=== PATIENT | male | born 1960 | race African-American/Black ===

== ENCOUNTER 2019-02-23 15:39 | Emergency (ER) | payer OTHER ==
[~2019-02-23] VITALS: Ht 172.7 cm; Wt 150.6 kg
[~2019-02-23 15:39] MED LIST: *INS REG3; ASPI-1169 PO; CARV6.25 PO; DOCU-270 PO; Hydralazine Hcl PO; LISI20TA; MELO-105; Nitroglycerin SL; OXYC10TA59; OXYC5CAP18; PANT40TA2 PO; SIMV20TA2 PO; TRAZ-252
--- NOTE | 2019-02-23 16:02 | NUR ---
BIB SELF 58 YEAR OLD FEMALE C/O FACIAL SWELLING SINCE THIS AM. CONCERN ABOUT THROAT DISCOMFORT DENIES SOB INSPECTOR BRAKE LINING. ALERT AND ORIENTED X4 BREATHING EVEN AND UNLABORED WITH NO DISTRESS NOTED. SKIN INTACT. AWAITING TO BE SEE BY
[2019-02-23] MEDS ORDERED: methylPREDNISolone SOD SUCC 125 MG/2ML VIAL ONE (16:17)
[2019-02-23] MEDS ORDERED: diphenhydrAMINE HCL 50 MG CAPSULE ONE (16:18)
[2019-02-23] MEDS ORDERED: FAMOTIDINE (20 MG) 20 MG TABLET ONE (16:18)
[2019-02-23] MEDS ORDERED: diphenhydrAMINE HCL 50 MG CAPSULE PO ONE (16:30)
[2019-02-23] MEDS ORDERED: FAMOTIDINE (20 MG) 20 MG TABLET PO ONE (16:30)
[2019-02-23] MEDS ORDERED: methylPREDNISolone SOD SUCC 125 MG/2ML VIAL IM ONE (16:30)
--- NOTE | 2019-02-23 16:48 | NUR ---
Patient discharged to home in stable condition. Written and verbal after care instructions given. Patient verbalizes understanding of instruction.
[2019-02-23 16:49] VITALS: BP 144/74
== END 2019-02-23 16:52 | disposition home or self-care (01) ==
LOC: ER 15:40
DX: T78.3XXA Angioneurotic edema, initial encounter (principal); T46.4X5A Adverse effect of angiotensin-converting-enzyme inhibitors, initial encounter; G89.29 Other chronic pain; M54.9 Dorsalgia, unspecified; G47.33 Obstructive sleep apnea (adult) (pediatric); J45.909 Unspecified asthma, uncomplicated; E11.9 Type 2 diabetes mellitus without complications; I10 Essential (primary) hypertension; Z87.891 Personal history of nicotine dependence; Z98.890 Other specified postprocedural states; Z79.82 Long term (current) use of aspirin; Z79.4 Long term (current) use of insulin; Y92.89 Other specified places as the place of occurrence of the external cause
CPT/HCPCS: 96372; 99283; J2930; Q0163

== ENCOUNTER 2020-04-25 19:02 | Inpatient (IN) | payer OTHER ==
[~2020-04-25] VITALS: Ht 172.7 cm; Wt 158.3 kg
--- NOTE | 2020-04-25 20:03 | NUR ---
BIBS FROM HOME TO ER BED 6. AAOX4. NOT IN RESP DISTRESS, BREATHING EVEN AND UNLABORED. TALKING IN FULL SENTENCES. AMBULATORY. CAME IN FOR SOB WHICH IS EXACERBATED BY ACTIVITY. PT STATES THAT HE GETS WINDED OFF EVEN IF HE ONLY WALKS FOR A SHORT DISTANCE. PT IS SATTING WELL NOTED @ 97% ON RA. WAS AT THE BEDSIDE FOR EVAL. ORDERS RECEIVED, NOTED AND CARRIED OUT. IV LINE ESTABLISHED ON L AC 18G. BLOOD DRAWN AND GIVEN TO COMPUTERIZED TABLE CUTTER AT BEDSIDE.
[2020-04-25 20:12] LABS: BASOPHILS # (AUTO) 0.1 /CMM (0.0-0.2); BASOPHILS % (AUTO) 0.8 % (0.0-2.0); EOSINOPHILS % (AUTO) 1.6 % (0.0-6.0); HEMATOCRIT 34 % (39-51); HEMOGLOBIN 10.8 g/dL (13.5-17.5); LYMPHOCYTES # (AUTO) 1.7 /CMM (0.8-4.8); LYMPHOCYTES % (AUTO) 18.1 % (20.0-44.0); MEAN CORPUSCULAR HGB CONC 32 g/dl (31.0-36.0); MEAN CORPUSCULAR VOLUME 91 fL (80-96); MONOCYTES # (AUTO) 0.7 /CMM (0.1-1.30); MONOCYTES % (AUTO) 7.6 % (2.0-12.0); NEUTROPHILS # (AUTO) 6.8 /CMM (1.8-8.9); NEUTROPHILS % (AUTO) 71.9 % (43.0-81.0); PLATELET COUNT (AUTO) 234 /CMM (150-450); RED BLOOD CELL COUNT(AUTO) 3.69 MIL/uL (4.5-6.0); WHITE BLOOD COUNT (AUTO) 9.4 K/uL (4.3-11.0)
[2020-04-25 20:18] LABS: CALCIUM, SERUM 8.6 mg/dL (8.5-10.1); CREATININE 2.3 mg/dL (0.6-1.3); POTASSIUM 4.3 mmol/L (3.5-5.1)
[2020-04-25 20:34] LABS: ALBUMIN 2.5 g/dL (3.4-5.0); TOTAL PROTEIN, SERUM 6.9 g/dL (6.4-8.2)
--- NOTE | 2020-04-25 20:41 | NUR ---
MADE AWARE OF BP 215/106. NNO AT THIS TIME.
[2020-04-25 20:46] LABS: BILIRUBIN,TOTAL 0.1 mg/dL (0.2-1.0)
--- NOTE | 2020-04-25 21:15 | NUR ---
REC'D NEG COVID RESULTS
[2020-04-25] MEDS ORDERED: ASPIRIN 81 MG TAB.CHEW PO ONE (21:30)
[2020-04-25] MEDS ORDERED: MORPHINE SULFATE INJ 2 MG/ML DISP.SYRIN IV ONE (21:30)
[2020-04-25] MEDS ORDERED: NITROGLYCERIN 0.4 MG/TAB BOTTLE SL ONE (21:30)
[2020-04-25] MEDS ORDERED: ONDANSETRON HCL/PF - ER 4 MG/2 ML VIAL IV ONE (21:30)
--- NOTE | 2020-04-25 21:37 | NUR ---
TELE 304-1
[2020-04-25] MEDS ORDERED: NITROGLYCERIN 0.4 MG/TAB BOTTLE ONE (21:40)
[2020-04-25] MEDS ORDERED: ONDANSETRON HCL/PF 4 MG/2 ML VIAL ONE (21:40)
[2020-04-25] MEDS ORDERED: ASPIRIN 81 MG TAB.CHEW ONE (21:40)
[2020-04-25] MEDS ORDERED: MORPHINE SULFATE INJ 4 MG/ML DISP.SYRIN ONE (21:40)
[2020-04-25] MEDS ORDERED: FUROSEMIDE 40 MG/4 ML VIAL IV ONE (22:00)
--- NOTE | 2020-04-25 22:09 | NUR ---
2nd dose of nitroglycerin 0.4mg sl given. 178/85
--- NOTE | 2020-04-25 22:29 | NUR ---
REPORT GIVEN TO NEENA HAYES FOR MELY
--- NOTE | 2020-04-25 22:32 | NUR ---
3RD DOSE NOTROGLYCERIN 0.4 MG SL GIVEN PER MD ORDERED. BP 186/102
--- NOTE | 2020-04-25 22:45 | NUR ---
pt transported to [facility] with emt and rn at bedside w/ acls protocol. nad during transport
[2020-04-25 23:00] VITALS: BP 142/85
--- NOTE | 2020-04-25 23:00 | NUR ---
food and nutrition services supervisorproof tester notes Received Pt from ER nurse NEENA Villarreal. Pt arrived at the unit with a gurney. Pt is alert and orientedX4. Respiration is normal in room air. No SOB. No S/S of distress noted. Pt denies any chest pain. Pt is able to ambulate with a cane and assist. IV sites at LAC# 18 is clean, intact and flushes well. Tele monitor showed SR HR at 86 bpm. Pt stated Pt has allergy to gabapentin and lisinopril. MD is aware and informed. Pt's allergy is documented. Skin assessment is done and performed. Pt skin is intact. Pt's belonging was checked by MERISSA Villarreal. Pt's cane at the bedside. Reorient Pt to the room and the use of call light. Pt verbalize understanding. Admission orders received from Hugo Ny NP. Ordered carried out. Safety precautions is maintained. Bed at low position, brakes locked, HOB elevated, side rails upX2, bed alarm is on, urinal at the bedside and call light is within reach. Will continue to monitor.
[2020-04-25] MEDS ORDERED: METO200T49 PO (23:46)
--- NOTE | 2020-04-25 23:46 | NUR ---
green feed attendant notes Pt stated that Pt's taking metoprolol 200mg/BID. Informed and notified MD Pt is taking metoprolol 200 mg/BID. Will continue to monitor.
[2020-04-26] MEDS ORDERED: oxyCODONE IR immediate release 5 MG PO PRN
[2020-04-26] MEDS ORDERED: ACETAMINOPHEN 325 MG TABLET PO PRN
[2020-04-26] MEDS ORDERED: ONDANSETRON HCL/PF 4 MG/2 ML VIAL IVP PRN
[2020-04-26] MEDS ORDERED: Z GUARD REMEDY 2 OZ OINT TP PRN
--- NOTE | 2020-04-26 | NUR ---
assembler utility buildings notes Informed Pt about "do not release." Pt stated "it's okay for my family to call me here in hospital." Pt verbalize understanding.
[2020-04-26] MEDS: hydrALAZINE HCL 50 MG TABLET PO SCH ×4 (00:19→17:14)
[2020-04-26] MEDS ORDERED: BUMETANIDE INJ 0.25 MG/ML VIAL ONE (00:27)
[2020-04-26] MEDS ORDERED: BUMETANIDE INJ 4 MG in IV NS 0.9% 24 ML IV ONE (00:30)
--- NOTE | 2020-04-26 00:38 | NUR ---
patch press operator notes Informed and notified MD regarding bumex. MD ordered to run over 4 hours. Charge nurse is informed and aware. Ordered carried out.
[2020-04-26] MEDS ORDERED: BLOOD SUGAR DIAGNOSTIC 1 EACH STRIP IN SCH (01:00)
--- NOTE | 2020-04-26 01:20 | NUR ---
policeman notes Informed and notified MD regarding accucheck. MD ordered mild sliding scale. Ordered carried out.
[2020-04-26] MEDS ORDERED: DEXTROSE 50%-WATER 50 ML DISP.SYRIN IV PRN (01:30)
--- NOTE | 2020-04-26 01:37 | NUR ---
burglar alarm operator notes Pt is complaining of pain and requesting pain meds. Administered oxy Ir 5 mg/po as ordered for pain on his back per Pt's request. Will continue to monitor.
[2020-04-26] MEDS: BLOOD SUGAR DIAGNOSTIC 1 EACH STRIP IN SCH ×5 (01:42→22:07)
--- NOTE | 2020-04-26 01:50 | NUR ---
telemarketer supervisor notes RT at the bedside with cpap.
[2020-04-26] MEDS: INSULIN REGULAR, HUMAN 100 UNIT/ML 3 ML VIAL SQ PRN ×5 (01:51→22:38)
--- NOTE | 2020-04-26 02:00 | NUR ---
muffler hand notes Pt is on cpap 10, 30% fI02 with o2 sat is 100%. No SOB. Pt tolerated well.
[2020-04-26 04:00] VITALS: BP_SYST 181; BP_SYST 182; BP_DIAS 80; BP_DIAS 94
--- NOTE | 2020-04-26 04:50 | NUR ---
metal patternmaker notes Pt is requesting Oxy Ir 10 mg for back pain. Pt gets agitated easily. Pt stated " I want the meds now!!" Pt also stated whenever Pt is on pain, Pt's bp is increase. Informed and notified MD regarding pain meds Oxy Ir 10 mg. MD ordered Oxy Ir 10 mg/Q6hr/prn and discontinue Oxy Ir 5 mg. Informed MD Pt's BP 181/80, pulse 83. MD is aware and informed. Ordered carried out.
--- NOTE | 2020-04-26 05:00 | NUR ---
extractor tender raw stock notes Pt refused to have VS checked after pain meds. Explained risks and benefits. Pt keep refusing. Will dick nue to monitor.
[2020-04-26] MEDS ORDERED: oxyCODONE IR immediate release 5 MG ONE (05:08)
[2020-04-26] MEDS: oxyCODONE IR immediate release 5 MG PO PRN ×4 (05:12→23:46)
--- NOTE | 2020-04-26 05:14 | NUR ---
tire spotter notes Pt is requesting oxy Ir 10 mg for pain. Pt gets agitated easily. Administered Oxy ir 10 mg/po/prn as ordered for back pain 04/16. Safety precautions is maintained. Will continue to monitor.
[2020-04-26 06:24] LABS: BASOPHILS % (AUTO) 0.6 % (0.0-2.0); EOSINOPHILS % (AUTO) 2.3 % (0.0-6.0); HEMATOCRIT 32 % (39-51); HEMOGLOBIN 10.4 g/dL (13.5-17.5); MEAN CORPUSCULAR HGB CONC 32 g/dl (31.0-36.0); MEAN CORPUSCULAR VOLUME 92 fL (80-96); MONOCYTES # (AUTO) 0.8 /CMM (0.1-1.30); MONOCYTES % (AUTO) 9.2 % (2.0-12.0); NEUTROPHILS # (AUTO) 5.7 /CMM (1.8-8.9); NEUTROPHILS % (AUTO) 64.9 % (43.0-81.0); PLATELET COUNT (AUTO) 228 /CMM (150-450); RED BLOOD CELL COUNT(AUTO) 3.47 MIL/uL (4.5-6.0); WHITE BLOOD COUNT (AUTO) 8.8 K/uL (4.3-11.0)
--- NOTE | 2020-04-26 06:50 | NUR ---
physician relations manager closing notes Pt is resting in bed comfortably. Pt is alert and orientedX4. Pt is on c-pap machine on per pt's request with O2 sat is 100%. No SOB. No S/S of distress noted. IV sites at LAC# 18 is clean, intact and flushes well. Tele monitor showed SR HR at 86 bpm. Routine meds were given as ordered. Kept Pt clean, dry and comfortable. All needs met and attended. Bed at low position, brakes locked, HOB elevated, side rails upX2, bed alarm is on, urinal at the bedside and call light is within reach. Will endorse to morning nurse for MELY.
[2020-04-26 07:04] LABS: ALANINE AMINOTRANSFERASE 22 U/L (12-78); ALBUMIN 2.4 g/dL (3.4-5.0); ALKALINE PHOSPHATASE 112 U/L (46-116); ASPARTATE AMINOTRANSFERASE 17 U/L (15-37); CALCIUM, SERUM 8.6 mg/dL (8.5-10.1); CARBON DIOXIDE 27 mmol/L (21-32); CHLORIDE 107 mmol/L (98-107); CREATININE 2.2 mg/dL (0.6-1.3); GLUCOSE 199 mg/dL (74-106); MAGNESIUM 2.2 mg/dL (1.8-2.4); PHOSPHORUS 3.5 mg/dL (2.5-4.9); POTASSIUM 4.3 mmol/L (3.5-5.1); SODIUM SERUM 140 mmol/L (136-145); TOTAL PROTEIN, SERUM 6.7 g/dL (6.4-8.2); UREA NITROGEN, BLOOD 28 mg/dL (7-18)
[2020-04-26 07:09] LABS: CHOLESTEROL 140 mg/dL (<200); HDL CHOLESTEROL 55 mg/dL (40-60); LDL 67 mg/dL (0-99); THYROID STIMULATING HORMONE 1.521 uIU/mL (0.358-3.74); TRIGLYCERIDES 116 mg/dL (30-150)
[2020-04-26 07:23] LABS: BILIRUBIN,TOTAL < 0.1 mg/dL (0.2-1.0)
[2020-04-26 08:00] VITALS: BP 183/94
--- NOTE | 2020-04-26 08:36 | NUR ---
pt is awake and alert off bipap with SpO2 96% on room air but pt still wants to use oxygen. pt. encourage that he dont need O2 but he still wants oxygen. pt. placed into 1 lpm o2 flow via nasal cannula. RN notified. Addendum: 04/26/20 at 0848 by LUISITO MIR RT Amended: Links added.
[2020-04-26] MEDS: MELOXICAM 7.5 MG TABLET PO SCH ×2 (09:00→09:02)
[2020-04-26] MEDS: PANTOPRAZOLE 40 MG TABLET.DR PO SCH (09:01)
[2020-04-26] MEDS: ASPIRIN 81 MG TAB.CHEW PO SCH (09:01)
[2020-04-26] MEDS: METOPROLOL SUCCINATE 50 MG TAB.SR.24H PO SCH (09:01)
[2020-04-26] MEDS: ENOXAPARIN SODIUM 40 MG/0.4 ML DISP.SYRIN SQ SCH (09:04)
[2020-04-26] MEDS: DOCUSATE SODIUM 100 MG CAPSULE PO PRN ×2 (09:17→09:24)
--- NOTE | 2020-04-26 09:38 | NUR ---
given colace per pt. request.
[2020-04-26 12:00] VITALS: BP 186/93
--- NOTE | 2020-04-26 15:03 | NUR ---
ua sent as per md orders.pt. observed ambulating to br.tolerated well.
--- NOTE | 2020-04-26 15:59 | NUR ---
call out to michael melendrez np regarding bp 190/102,[id number]
[2020-04-26 16:00] VITALS: BP 190/102
[2020-04-26] MEDS: CLONIDINE HCL 0.1 MG TABLET PO PRN ×2 (16:04→22:07)
--- NOTE | 2020-04-26 16:09 | NUR ---
given catapres for elevated bp.
[2020-04-26 16:17] LABS: CREATININE, URINE 55.1 MG/DL (30.0-125.0); URINE TOTAL PROTEIN 477.9 mg/dL (0-11.9)
[2020-04-26 16:20] LABS: APPEARANCE,URINE CLEAR (CLEAR); BILIRUBIN,URINE NEGATIVE (NEGATIVE); BLOOD, URINE TRACE-INTA Ery/uL (NEGATIVE); COLOR,URINE YELLOW (YELLOW); KETONES,URINE NEGATIVE (NEGATIVE); LEUKOCYTE ESTERASE ,URINE NEGATIVE (NEGATIVE); NITRITE, URINE NEGATIVE (NEGATIVE); PROTEIN,URINE >=300 mg/dl (NEGATIVE); UGLUCOSE 250 MG/DL mg/dL (NEGATIVE); UROBILINOGEN,URINE 0.2 EU/dL (0.2)
--- NOTE | 2020-04-26 16:30 | NUR ---
SEVERAL MEDS PT. REQUESTING HE TAKES AT HOME ORDERED AND TO BE ADM.
[2020-04-26] MEDS: POLYETHYLENE GLYCOL 3350 17 GM POWD.PACK PO PRN (16:43)
[2020-04-26] MEDS: BACLOFEN (10 MG) 10 MG TABLET PO SCH (16:43)
[2020-04-26] MEDS: MULTIVITAMINS,THERAGRAN 1 UDTAB TABLET PO SCH (16:43)
[2020-04-26 16:51] LABS: BACTERIA,URINE Rare /HPF (None Seen); RBC,URINE 0-2 /HPF (0-2); SQUAMOUS EPITHELIAL CELL,UR Few /HPF (None Seen); WBC,URINE 0-2 /HPF (0-3)
[2020-04-26 16:56] LABS: EOSINOPHIL,URINE None Seen
--- NOTE | 2020-04-26 18:52 | NUR ---
COMPENSATION ASSOCIATE IZA LYNNE.
--- NOTE | 2020-04-26 19:30 | NUR ---
WAITER NOTE: PATIENT RESTING IN BED, NO ACUTE DISTRESS NOTED. BREATHING EVEN AND UNLABORED, NO SOB NOTED. IV TO LAC IN PLACE. NO S/S OF HYPER/HYPOGLYCEMIA NOTED. BED LOCKED AND IN LOWEST POSITION, CALL LIGHT IN REACH. WILL CONTINUE TO MONITOR.
[2020-04-26 20:00] VITALS: BP 193/98
[2020-04-26] MEDS: SIMVASTATIN 20 MG TABLET PO SCH (22:07)
[2020-04-26] MEDS: TRAZODONE 50 MG TABLET PO SCH (22:07)
--- NOTE | 2020-04-26 22:30 | NUR ---
[place] TOUR GUIDE NOTE: PATIENT BLOOD SUGAR LEVEL 220MG/DL, TO RECEIVE 4 UNITS OF INSULIN PER SLIDING SCALE. NO S/S OF HYPER/HYPOGLYCEMIA NOTED. PATIENT GIVEN CATAPRES 0.1 MG ORAL PER MD ORDER FOR ELEVATED BLOOD PRESSURE. PATIENT ALSO REQUESTING FOR MEDICATION FOR GAS, INFORMED MD. RECEIVED ORDER FOR MYLICON 80MG ORAL EVERY 8 HOURS NEEDED, ORDER NOTED AND CARRIED OUT. WILL CONTINUE TO MONITOR.
--- NOTE | 2020-04-26 22:50 | NUR ---
ELECTRICAL SOLDERER NOTE: REPORT GIVEN TO LIAM FOR CONTINUATION OF CARE. PATIENT RESTING IN BED, NO ACUTE DISTRESS NOTED.
--- NOTE | 2020-04-26 23:12 | NUR ---
RECEIVED PT ON BED RESTING NO SIGN AND SYMPTOMS OF DISTRESS,FOR NOC CIPAP PER MD ORDER WITH LAC # 18 IV PATENT AND FLUSH, TELE MONITOR READS SINUS RHYTHM 80'S SAFETY MEASURE MAINTAINED BED ON LOWEST POSITION AND LOCKED CALL LIGHT WITHIN REACH WILL CONT TO MONITOR THE PT
[2020-04-26] MEDS: SIMETHICONE 80 MG TAB.CHEW PO PRN (23:45)
[2020-04-27] VITALS (9 sets, daily range): BP systolic 95–191; BP diastolic 60–99
--- NOTE | 2020-04-27 | NUR ---
RN NOTES PT BP IS 191/99 DESPITE THE CATAPRES PRN GIVEN @ 2200, REPORTED IT TO ONCALL DR. OHARA WITH ORDER NORVASC 10MG QHS STARTING NOW NOTED AND CARRIED OUT
--- NOTE | 2020-04-27 00:10 | NUR ---
RN NOTES OFFER CIPAP TO THE PT, BUT PT REFUSED, RISK AND BENEFITS EXPLAINED BUT STILL REFUSED TO PUT ON CIPAP,RT AWARE, MAINTAIN ON NC @ 2L O2 WITH SPO2 100% NO SOB NOTED WILL CONT TO MONITOR
[2020-04-27] MEDS: AMLODIPINE BESYLATE 10 MG TABLET PO SCH ×2 (00:23→21:17)
--- NOTE | 2020-04-27 02:15 | NUR ---
RN NOTES BP RECHECKED 158/78 HR 80
[2020-04-27] MEDS: BLOOD SUGAR DIAGNOSTIC 1 EACH STRIP IN SCH ×4 (06:45→21:31)
[2020-04-27] MEDS: INSULIN REGULAR, HUMAN 100 UNIT/ML 3 ML VIAL SQ PRN ×4 (06:47→21:30)
[2020-04-27 06:59] LABS: BASOPHILS % (AUTO) 0.4 % (0.0-2.0); HEMATOCRIT 33 % (39-51); HEMOGLOBIN 10.8 g/dL (13.5-17.5); LYMPHOCYTES % (AUTO) 24.7 % (20.0-44.0); MEAN CORPUSCULAR HGB CONC 33 g/dl (31.0-36.0); MEAN CORPUSCULAR VOLUME 92 fL (80-96); MONOCYTES # (AUTO) 0.7 /CMM (0.1-1.30); MONOCYTES % (AUTO) 8.9 % (2.0-12.0); NEUTROPHILS # (AUTO) 5.2 /CMM (1.8-8.9); PLATELET COUNT (AUTO) 231 /CMM (150-450); RED BLOOD CELL COUNT(AUTO) 3.61 MIL/uL (4.5-6.0); WHITE BLOOD COUNT (AUTO) 8.2 K/uL (4.3-11.0)
--- NOTE | 2020-04-27 07:08 | NUR ---
PT ON BED ASLEEP EASY TO WAKE UP NO SIGN AND SYMPTOMS OF SOB NO COMPLAINT OF PAIN NO SIGNIFICANT CHANGES ON CONDITION NOTED ALL NEEDS ATTENDED SAFETY MEASURE MAINTAINED BED ON LOWEST POSITION AND LOCKED SIDE RAILS UP X2 CALL LIGHT WITHIN REACH WILL ENDORSED TO AM SHIFT NURSE
[2020-04-27 07:19] LABS: ALBUMIN 2.4 g/dL (3.4-5.0); BILIRUBIN,TOTAL 0.1 mg/dL (0.2-1.0); CALCIUM, SERUM 8.6 mg/dL (8.5-10.1); CREATININE 2.1 mg/dL (0.6-1.3); MAGNESIUM 2.1 mg/dL (1.8-2.4); PHOSPHORUS 3.6 mg/dL (2.5-4.9); POTASSIUM 4.6 mmol/L (3.5-5.1); TOTAL PROTEIN, SERUM 6.7 g/dL (6.4-8.2)
--- NOTE | 2020-04-27 07:30 | NUR ---
ms rn received on bed, sleeping,alert,oriented x4,not in any form of distress, respirations even and unlabored,no sob noted,lungs are clear,abdomen soft,positive bowel sounds,denies pain at this time,all needs attended.will monitor patient's condition.
[2020-04-27] MEDS: ASPIRIN 81 MG TAB.CHEW PO SCH (08:46)
[2020-04-27] MEDS: MULTIVITAMINS,THERAGRAN 1 UDTAB TABLET PO SCH (08:46)
[2020-04-27] MEDS: BACLOFEN (10 MG) 10 MG TABLET PO SCH ×2 (08:47→17:33)
[2020-04-27] MEDS: METOPROLOL SUCCINATE 50 MG TAB.SR.24H PO SCH (08:47)
[2020-04-27] MEDS: hydrALAZINE HCL 50 MG TABLET PO SCH ×3 (08:48→17:33)
[2020-04-27] MEDS: oxyCODONE IR immediate release 5 MG PO PRN ×3 (08:49→22:47)
[2020-04-27] MEDS: PANTOPRAZOLE 40 MG TABLET.DR PO SCH (08:51)
[2020-04-27] MEDS ORDERED: BISACODYL (5 MG) 5 MG TABLET.DR PO PRN (09:00)
--- NOTE | 2020-04-27 09:00 | NUR ---
ms rn due meds given,tolerated well.
[2020-04-27] MEDS: ENOXAPARIN SODIUM 40 MG/0.4 ML DISP.SYRIN SQ SCH (09:17)
[2020-04-27] MEDS: POLYETHYLENE GLYCOL 3350 17 GM POWD.PACK PO PRN (09:18)
[2020-04-27] MEDS: SIMETHICONE 80 MG TAB.CHEW PO PRN (09:54)
--- NOTE | 2020-04-27 19:26 | NUR ---
SCIENTIFIC INFORMATICS PROJECT LEADER OPENING NOTES PATIENT AWAKE IN BED. A/OX4. ON 2L NC; PATIENT DENIES SOB; BREATHING IS EVEN AND UNLABORED. NO C/O CHEST PAIN. TELE MONITOR READING NSR, HEART RATE 80. IV PRESENT ON LEFT AC, SIZE 18, INTACT & PATENT, HEP LOCKED. SAFETY MEASURES IN PLACE AND PATIENT'S NEEDS MET. BED LOCKED, HOB ELEVATED, SIDE RAILS X2, CALL LIGHT WITHIN REACH. WILL CONTINUE TO MONITOR.
[2020-04-27] MEDS: SIMVASTATIN 20 MG TABLET PO SCH (21:17)
[2020-04-27] MEDS: TRAZODONE 50 MG TABLET PO SCH (21:17)
[2020-04-27] MEDS: DOCUSATE SODIUM 100 MG CAPSULE PO PRN (23:40)
[2020-04-28] VITALS: BP 152/80
[2020-04-28 04:00] VITALS: BP 157/85
[2020-04-28] MEDS: oxyCODONE IR immediate release 5 MG PO PRN ×2 (05:35→11:40)
[2020-04-28] MEDS: BLOOD SUGAR DIAGNOSTIC 1 EACH STRIP IN SCH ×2 (06:44→11:18)
[2020-04-28 06:47] LABS: BASOPHILS # (AUTO) 0.1 /CMM (0.0-0.2); BASOPHILS % (AUTO) 0.6 % (0.0-2.0); EOSINOPHILS % (AUTO) 2.9 % (0.0-6.0); HEMATOCRIT 34 % (39-51); HEMOGLOBIN 11.1 g/dL (13.5-17.5); LYMPHOCYTES # (AUTO) 1.9 /CMM (0.8-4.8); MEAN CORPUSCULAR HGB CONC 32 g/dl (31.0-36.0); MEAN CORPUSCULAR VOLUME 92 fL (80-96); MONOCYTES # (AUTO) 0.7 /CMM (0.1-1.30); MONOCYTES % (AUTO) 8.2 % (2.0-12.0); NEUTROPHILS # (AUTO) 5.7 /CMM (1.8-8.9); NEUTROPHILS % (AUTO) 66.3 % (43.0-81.0); PLATELET COUNT (AUTO) 235 /CMM (150-450); RED BLOOD CELL COUNT(AUTO) 3.75 MIL/uL (4.5-6.0); WHITE BLOOD COUNT (AUTO) 8.6 K/uL (4.3-11.0)
[2020-04-28] MEDS: INSULIN REGULAR, HUMAN 100 UNIT/ML 3 ML VIAL SQ PRN ×2 (06:47→11:24)
[2020-04-28] MEDS: PANTOPRAZOLE 40 MG TABLET.DR PO SCH (06:48)
--- NOTE | 2020-04-28 06:55 | NUR ---
YARDER BOSS CLOSING NOTES PATIENT AWAKE IN BED. A/OX4. ON 2L NC; DENIES SOB OR PAIN AT THIS TIME. TELE MONITOR READING NSR, HEART RATE 83. IV PRESENT ON LEFT AC, SIZE 18, INTACT & PATENT, HEP LOCKED. SAFETY MEASURES IN PLACE AND PATIENT'S NEEDS MET. BED LOCKED, HOB ELEVATED, SIDE RAILS X2, CALL LIGHT WITHIN REACH. WILL ENDORSE DAY SHIFT RN PLAN OF CARE.
--- NOTE | 2020-04-28 07:25 | NUR ---
TELE/RN OPENING NOTES RECEIVED PATIENT AWAKE, ALERT AND ORIENTED X4. PATIENT IN NO APPARENT RESPIRATORY DISTRESS NOTED. DENIES PAIN AT THIS TIME. TELE MONITOR WAS IN PLACE READING SR 80 BPM. WILL CONTINUE TO MONITOR.
[2020-04-28 07:28] LABS: CALCIUM, SERUM 8.8 mg/dL (8.5-10.1)
[2020-04-28 08:00] VITALS: BP 162/82
[2020-04-28] MEDS: MULTIVITAMINS,THERAGRAN 1 UDTAB TABLET PO SCH (08:18)
[2020-04-28] MEDS: ASPIRIN 81 MG TAB.CHEW PO SCH (08:18)
[2020-04-28] MEDS: hydrALAZINE HCL 50 MG TABLET PO SCH ×2 (08:18→11:37)
[2020-04-28] MEDS: BACLOFEN (10 MG) 10 MG TABLET PO SCH (08:20)
[2020-04-28] MEDS: METOPROLOL SUCCINATE 50 MG TAB.SR.24H PO SCH (08:27)
[2020-04-28] MEDS: ENOXAPARIN SODIUM 40 MG/0.4 ML DISP.SYRIN SQ SCH (08:28)
[2020-04-28] MEDS: POLYETHYLENE GLYCOL 3350 17 GM POWD.PACK PO PRN (08:33)
[2020-04-28 10:07] LABS: PTH, INTACT 76 pg/mL (15-65)
[2020-04-28] MEDS ORDERED: INSU100V28 IJ (10:30)
[2020-04-28 12:00] VITALS: BP 168/96
[2020-04-28 13:07] LABS: *SPE A/G RATIO 0.8 (0.7-1.7); *SPE ALBUMIN 2.6 g/dL (2.9-4.4); *SPE ALPHA-1-GLOBULIN 0.3 g/dL (0.0-0.4); *SPE ALPHA-2-GLOBULIN 0.9 g/dL (0.4-1.0); *SPE BETA GLOBULIN 1.2 g/dL (0.7-1.3); *SPE GLOBULIN, TOTAL 3.2 g/dL (2.2-3.9); *SPE M-SPIKE Not Observed g/dL (Not Observed); *SPEGAMMA GLOBULIN 0.8 g/dL (0.4-1.8)
--- NOTE | 2020-04-28 13:49 | NUR ---
RN NOTES PATIENT IS ALERT AND ORIENTED X4. IIN ROOM AIR AND SATURATION IS AT 98%. RESPIRATION REGULAR AND UNLABORED. PATIENT DENIES PAIN AT THIS TIME. PATIENT IN NO APPARENT RESPIRATORY DISTRESS NOTED. SEEN AND EXAMINED BY MD WITH ORDERS MADE AND CARRIED OUT. ALL DUE MEDICATIONS WAS GIVEN. PATIENT WAS GIVEN INSTRUCTIONS AND PATIENT WAS VERBALIZED UNDERSTANDING. BP 168/96 P 82 HYDRALAZINE 100MG 2 TAB WAS GIVEN. THE PATIENT LEFT IN THE HOSPITAL IN MEDICALLY STABLE CONDITION AT 1350.
== END 2020-04-28 13:45 | disposition home or self-care (01) | DRG 280 ==
LOC: ER 19:04 → TELE 21:50
PROVIDERS: ADMIT Nurse Practitioner Acute Care; ATTEND Nurse Practitioner Acute Care
PROC: 5A09357 Assistance with Respiratory Ventilation, Less than 24 Consecutive Hours, Continuous Positive Airway Pressure (ICD-10-PCS; principal; 2020-04-25)
DX: I13.0 Hypertensive heart and chronic kidney disease with heart failure and stage 1 through stage 4 chronic kidney disease, or unspecified chronic kidney disease (principal); N17.0 Acute kidney failure with tubular necrosis; I21.4 Non-ST elevation (NSTEMI) myocardial infarction; J96.91 Respiratory failure, unspecified with hypoxia; I50.33 Acute on chronic diastolic (congestive) heart failure; J45.901 Unspecified asthma with (acute) exacerbation; Z68.41 Body mass index [BMI] 40.0-44.9, adult; I25.110 Atherosclerotic heart disease of native coronary artery with unstable angina pectoris; E78.5 Hyperlipidemia, unspecified; G89.29 Other chronic pain; E11.22 Type 2 diabetes mellitus with diabetic chronic kidney disease; K44.9 Diaphragmatic hernia without obstruction or gangrene; F41.9 Anxiety disorder, unspecified; Z79.82 Long term (current) use of aspirin; Z79.4 Long term (current) use of insulin; Z79.899 Other long term (current) drug therapy; Z87.891 Personal history of nicotine dependence; E66.01 Morbid (severe) obesity due to excess calories; G47.33 Obstructive sleep apnea (adult) (pediatric); D64.9 Anemia, unspecified; N18.9 Chronic kidney disease, unspecified
CPT/HCPCS: 36415; 71045-TC; 76770-TC; 80048-TC; 80053-TC; 80061-TC; 80076-TC; 81000-TC; 82550-TC; 82570-TC; 82962-TC; 83735-TC; 83880; 83970; 84100-TC; 84155; 84155-TC; 84165; 84300-TC; 84443-TC; 84484-TC; 85025-TC; 85378-TC; 87081-TC; 93307-TC; C9803; G0378; J1650; J1815; J1940; J2270; J2405; J3490; J7030; J7050

== ENCOUNTER 2020-08-09 18:38 | Inpatient (IN) | payer OTHER ==
[~2020-08-09] VITALS: Ht 182.9 cm; Wt 163.3 kg
[~2020-08-09 18:38] MED LIST changes: +INSU100V28 IJ; +METO200T49 PO
--- NOTE | 2020-08-09 18:38 | NUR ---
PT BIBRA FROM HOME C/O SOB SINCE YESTERDAY 66% ON RA. PT IS ON CPAP UPON ARRIVAL FROM RA. HOOKED TO EXECUTIVE VICE PRESIDENT OF SALES, KEPT RESTED AND COMFORTABLE. WILL CONTINUE TO MONITOR.
--- NOTE | 2020-08-09 18:45 | NUR ---
DR. RIVERS @ BS FOR JOSETTEAL.
--- NOTE | 2020-08-09 19:10 | NUR ---
PT PLACED ON HI FLOW 60L BY RT PER ERMD ORDER, O2 SAT 100%. PT MAC WELL. WILL CONT TO MONITOR.
[2020-08-09 19:17] LABS: BASOPHILS # (AUTO) 0.2 /CMM (0.0-0.2); BASOPHILS % (AUTO) 1.3 % (0.0-2.0); EOSINOPHILS % (AUTO) 0.4 % (0.0-6.0); HEMATOCRIT 35 % (39-51); HEMOGLOBIN 11.2 g/dL (13.5-17.5); LYMPHOCYTES # (AUTO) 1.1 /CMM (0.8-4.8); LYMPHOCYTES % (AUTO) 7.4 % (20.0-44.0); MEAN CORPUSCULAR HGB CONC 32 g/dl (31.0-36.0); MEAN CORPUSCULAR VOLUME 89 fL (80-96); MONOCYTES # (AUTO) 1.1 /CMM (0.1-1.30); MONOCYTES % (AUTO) 7.2 % (2.0-12.0); NEUTROPHILS # (AUTO) 12.9 /CMM (1.8-8.9); NEUTROPHILS % (AUTO) 83.7 % (43.0-81.0); PLATELET COUNT (AUTO) 227 /CMM (150-450); RED BLOOD CELL COUNT(AUTO) 3.91 MIL/uL (4.5-6.0); WHITE BLOOD COUNT (AUTO) 15.4 K/uL (4.3-11.0)
[2020-08-09] MEDS ORDERED: methylPREDNISolone SOD SUCC 125 MG/2ML VIAL ONE (19:24)
[2020-08-09] MEDS ORDERED: methylPREDNISolone SOD SUCC 125 MG/2ML VIAL IV ONE (19:30)
--- NOTE | 2020-08-09 19:37 | NUR ---
MEDICATED PER ERMD ORDER, PT MAC WELL. WILL CONT TO MONITOR.
[2020-08-09 19:40] LABS: CALCIUM, SERUM 8.8 mg/dL (8.5-10.1); CREATININE 6.4 mg/dL (0.6-1.3)
[2020-08-09 19:44] LABS: POTASSIUM 6.2 mmol/L (3.5-5.1)
[2020-08-09 19:55] LABS: ALBUMIN 3.4 g/dL (3.4-5.0); BILIRUBIN,DIRECT 0.1 mg/dL (0.0-0.2); BILIRUBIN,TOTAL 0.3 mg/dL (0.2-1.0); TOTAL PROTEIN, SERUM 8.2 g/dL (6.4-8.2)
[2020-08-09 20:11] LABS: ABG BASE EXCESS -5.4 mmol/L; ABG PH 7.337 (7.350-7.450); ABG PO2 87.6 mmHg (75.0-100.0); AaDO2 117.8 mmHg; COHb 0.6 % (0.5-1.5); MetHb 0.3 % (0.0-1.5); O2Hb 95.1 % (94.0-97.0); SITE, ABG Right Radial; VENT MODE, BG 60L 35% HFNC
[2020-08-09] MEDS ORDERED: CEFTRIAXONE 1 G in IV D5W 50 ML IV ONE (21:00)
[2020-08-09] MEDS ORDERED: DEXTROSE 50%-WATER 50 ML DISP.SYRIN IV ONE (21:00)
[2020-08-09] MEDS ORDERED: AZITHROMYCIN 500 MG in IV D5W 250 ML IV ONE (21:00)
[2020-08-09] MEDS ORDERED: INSULIN REGULAR, HUMAN 100 UNIT/ML 10 ML VIAL IV ONE (21:00)
[2020-08-09] MEDS ORDERED: ALBUTEROL FS 2.5 MG/3 ML VIAL.NEB NEB ONE (21:00)
[2020-08-09] MEDS ORDERED: CEFTRIAXONE 1GM BAG (ER ONLY) 50 ML IV ONE (21:06)
[2020-08-09] MEDS ORDERED: INSULIN REGULAR, HUMAN 100 UNIT/ML 10 ML VIAL ONE (21:07)
[2020-08-09] MEDS ORDERED: AZITHROMYCIN 500 MG VIAL ONE (21:07)
[2020-08-09] MEDS ORDERED: DEXTROSE 50%-WATER 50 ML DISP.SYRIN ONE (21:07)
[2020-08-09] MEDS ORDERED: FUROSEMIDE 40 MG/4 ML VIAL IV ONE (21:30)
--- NOTE | 2020-08-09 21:35 | NUR ---
MEDICATED PER ERMD ORDER, PT MAC WELL. PT O2 SAT 98% ON HI FLOW. PT MAC WELL. WILL CONT TO MONITOR.
[2020-08-09] MEDS ORDERED: ALBUTEROL FS 2.5 MG/3 ML VIAL.NEB ONE (21:52)
--- NOTE | 2020-08-09 21:58 | NUR ---
PT GETTING BREATHING TX, RT AT BS. PT MAC WELL.
[2020-08-09] MEDS ORDERED: HYDROMORPHONE 1 MG/1 ML DISP.SYRIN IV STA (22:14)
--- NOTE | 2020-08-09 22:26 | NUR ---
PT C/O LOWER BACK PAIN. MEDICATED PER ERMD ORDER, PT MAC WELL. PT STABLE, NO RESP DISTRESS NOTED. ON TELE SR. WILL CONT TO MONITOR.
[2020-08-09] MEDS ORDERED: ZOLPIDEM TARTRATE 5 MG TABLET PO PRN (23:30)
[2020-08-09] MEDS ORDERED: ONDANSETRON HCL/PF 4 MG/2 ML VIAL IVP PRN (23:30)
[2020-08-09] MEDS ORDERED: MAG HYDROX/AL HYDROX/SIMETH 30 ML UDC PO PRN (23:30)
[2020-08-09] MEDS ORDERED: ACETAMINOPHEN 325 MG TABLET PO PRN (23:30)
[2020-08-09] MEDS ORDERED: HYDROMORPHONE INJ 2 MG/ML DISP.SYRIN IV PRN (23:30)
[2020-08-09] MEDS ORDERED: Z GUARD REMEDY 2 OZ OINT TP PRN (23:30)
[2020-08-09] MEDS ORDERED: MAGNESIUM HYDROXIDE 30 ML UDC PO PRN (23:30)
[2020-08-10] VITALS (26 sets, daily range): BP systolic 116–203; BP diastolic 66–149
[2020-08-10 00:45] LABS: ABG BASE EXCESS -5.8 mmol/L; ABG OXYGEN SATURATION 92.7 % (92.0-98.5); ABG PCO2 35.9 mmHg (35.0-45.0); ABG PH 7.346 (7.350-7.450); ABG PO2 70.6 mmHg (75.0-100.0); AaDO2 137.2 mmHg; COHb 0.6 % (0.5-1.5); MetHb 0.4 % (0.0-1.5); O2Hb 91.8 % (94.0-97.0); SITE, ABG Left Radial; VENT MODE, BG HFNC 60 L 35%
--- NOTE | 2020-08-10 00:50 | NUR ---
PT HALLUCINATING STATING THERE ARE PEOPLE IN THE ROOM TAKING VIDEOS OF HIM. MICHAELA FUENTES AWARE.
[2020-08-10] MEDS ORDERED: LORAZEPAM INJ 2 MG/ML VIAL ONE (00:51)
--- NOTE | 2020-08-10 00:55 | NUR ---
MICHAELA DECK MOLDER AT BEDSIDE FOR EVAL.
[2020-08-10] MEDS ORDERED: LORAZEPAM INJ 2 MG/ML VIAL IV ONE (01:00)
[2020-08-10] MEDS ORDERED: HALOPERIDOL LACTATE INJ 5 MG/ML VIAL IM ONE (03:00)
[2020-08-10] MEDS ORDERED: HALOPERIDOL LACTATE INJ 5 MG/ML VIAL ONE (03:00)
--- NOTE | 2020-08-10 03:01 | NUR ---
PT VERBALLY ABUSIVE. STATING SOMEONE IS TAKING A VIDEO OF HIM AND POSTING IT ON [facility] TOK. MICHAELA FUENTES AWARE.
[2020-08-10] MEDS ORDERED: DOCUSATE SODIUM 100 MG CAPSULE PO PRN (04:30)
[2020-08-10 04:39] LABS: BASOPHILS % (AUTO) 0.1 % (0.0-2.0); HEMATOCRIT 34 % (39-51); HEMOGLOBIN 10.9 g/dL (13.5-17.5); LYMPHOCYTES # (AUTO) 0.4 /CMM (0.8-4.8); LYMPHOCYTES % (AUTO) 2.5 % (20.0-44.0); MEAN CORPUSCULAR HGB CONC 32 g/dl (31.0-36.0); MEAN CORPUSCULAR VOLUME 90 fL (80-96); MONOCYTES # (AUTO) 0.4 /CMM (0.1-1.30); MONOCYTES % (AUTO) 2.4 % (2.0-12.0); NEUTROPHILS # (AUTO) 14.8 /CMM (1.8-8.9); PLATELET COUNT (AUTO) 230 /CMM (150-450); RED BLOOD CELL COUNT(AUTO) 3.76 MIL/uL (4.5-6.0); WHITE BLOOD COUNT (AUTO) 15.5 K/uL (4.3-11.0)
[2020-08-10] MEDS ORDERED: NITROGLYCERIN 0.4 MG/TAB BOTTLE SL PRN (05:00)
[2020-08-10 05:18] LABS: ALBUMIN 3.3 g/dL (3.4-5.0); BILIRUBIN,TOTAL 0.3 mg/dL (0.2-1.0); CALCIUM, SERUM 8.4 mg/dL (8.5-10.1); CREATININE 6.7 mg/dL (0.6-1.3); MAGNESIUM 2.6 mg/dL (1.8-2.4); PHOSPHORUS 5.4 mg/dL (2.5-4.9); TOTAL PROTEIN, SERUM 8.2 g/dL (6.4-8.2)
--- NOTE | 2020-08-10 05:20 | NUR ---
REC'D CRITICAL POTASSIUM LEVEL OF 7.2. MICHAELA ART TRAUMA COUNSELLOR ON THE FLOOR MADE AWARE. SHE WILL PLACE NEW ORDERS IN. WILL F/U
[2020-08-10 05:22] LABS: POTASSIUM 7.2 mmol/L (3.5-5.1)
[2020-08-10] MEDS ORDERED: SODIUM POLYSTYRENE SULFONATE 15 G/60 ML BOTTLE PO ONE ×2 (05:30→11:00)
[2020-08-10] MEDS ORDERED: SODIUM BICARBONATE SYR 50 MEQ/50 ML DISP.SYRIN IV ONE (05:30)
[2020-08-10] MEDS ORDERED: DEXTROSE 50%-WATER 50 ML DISP.SYRIN IV PRN (05:30)
[2020-08-10] MEDS ORDERED: SODIUM BICARBONATE SYR 50 MEQ/50 ML DISP.SYRIN ONE (05:52)
[2020-08-10] MEDS ORDERED: METOPROLOL SUCCINATE 50 MG TAB.SR.24H PO PRN (07:30)
[2020-08-10] MEDS: PANTOPRAZOLE 40 MG TABLET.DR PO SCH (07:30)
[2020-08-10] MEDS ORDERED: PANTOPRAZOLE 40 MG TABLET.DR PO SCH (07:30)
[2020-08-10] MEDS ORDERED: CARVEDILOL 6.25 MG TABLET ONE (08:18)
[2020-08-10] MEDS ORDERED: PANTOPRAZOLE 40 MG TABLET.DR PO ONE (08:18)
[2020-08-10] MEDS ORDERED: DOCUSATE SODIUM 100 MG CAPSULE PO ONE (08:18)
[2020-08-10] MEDS ORDERED: methylPREDNISolone SOD SUCC 125 MG/2ML VIAL ONE (08:18)
[2020-08-10] MEDS ORDERED: ASPIRIN 81 MG TAB.CHEW ONE (08:19)
[2020-08-10] MEDS: BLOOD SUGAR DIAGNOSTIC 1 EACH STRIP VI SCH ×4 (08:30→21:40)
[2020-08-10] MEDS: methylPREDNISolone SOD SUCC 125 MG/2ML VIAL IV SCH ×2 (08:40→17:52)
[2020-08-10] MEDS: ASPIRIN 81 MG TAB.CHEW PO SCH (08:40)
[2020-08-10] MEDS: DOCUSATE SODIUM 100 MG CAPSULE PO SCH ×2 (08:40→17:52)
[2020-08-10] MEDS: CARVEDILOL 6.25 MG TABLET PO SCH ×2 (08:55→20:06)
[2020-08-10] MEDS ORDERED: FUROSEMIDE 40 MG/4 ML VIAL IV SCH (09:00)
[2020-08-10] MEDS ORDERED: oxyCODONE IR immediate release 5 MG PO SCH (09:00)
[2020-08-10] MEDS ORDERED: MELOXICAM 7.5 MG TABLET PO SCH (09:00)
--- NOTE | 2020-08-10 09:10 | NUR ---
[employer] HAS DUPLICATE ORDER.
[2020-08-10] MEDS: INSULIN REGULAR, HUMAN 100 UNIT/ML 3 ML VIAL SQ PRN ×2 (09:14→12:58)
--- NOTE | 2020-08-10 10:01 | NUR ---
PATIENT TITRATED FROM HFNC TO 3LPM VIA NC. WITH SPO2 OF 95-96%. NO SOB NOTED. PATIENT A/OX3, BREATHING EVEN AND UNLABORED. NO SOB NOTED.
[2020-08-10] MEDS ORDERED: NALOXONE HCL 0.4 MG/ML AMPUL IV PRN ×2 (10:30→13:30)
--- NOTE | 2020-08-10 10:30 | NUR ---
INFORMED DR. GODWIN RE: OXYCONTIN 10MG TID AND OXYCODONE HCL 5MG TID. PER OK TO START. ORDER PLACED AND CARRIED OUT.
--- NOTE | 2020-08-10 10:31 | NUR ---
PER TATO, PATIENT UPGRADED TO ICU. BED 263
--- NOTE | 2020-08-10 10:33 | NUR ---
PATIENT KEPT INSISTING HE HAS A CELLPHONE, BUT NO CELLPHONE FOUND SINCE YESTERDAY.
--- NOTE | 2020-08-10 10:36 | NUR ---
PATIENT SEEN AND EXAMINED BY DR. CASTILLO. PER MD PATIENT WILL NEED EMERGENCY DIALYSIS.
--- NOTE | 2020-08-10 10:42 | NUR ---
GAVE REPORT TO ANGELLA CHAUDHARY AT ICU FOR MELY.
--- NOTE | 2020-08-10 11:23 | NUR ---
patient transferred to room 263 via acls protocol, no distress noted, pateint on 3lpm via nc, endorsed to Richie CHAUDHARY.
[2020-08-10] MEDS ORDERED: FUROSEMIDE 100 MG/10 ML VIAL IV ONE (11:30)
[2020-08-10] MEDS: oxyCODONE IR immediate release 5 MG PO SCH ×2 (12:43→17:52)
[2020-08-10] MEDS: hydrALAZINE HCL 50 MG TABLET PO SCH ×3 (12:44→17:52)
[2020-08-10] MEDS: NITROGLYCERIN PACKET 1 GM PACKET TOP SCH ×2 (12:45→17:51)
[2020-08-10] MEDS ORDERED: oxyCODONE HCL SR 10MG TAB.SR.12H PO SCH (13:00)
--- NOTE | 2020-08-10 13:21 | NUR ---
RECEIVED PATIENT IN BED FROM ER. PATIENT SOB, ON 3L NC. PATIENT ELEVATED BP. BUT OTHERWISE NO ACUTE DISTRESS NOTED. PATIENT INCREASED TO 6L NC, SATURATING WELL AT 96%. PATIENT A&OX3-4. PATIENT PRAVEEN IV ACCESS INTACT, PATENT, FLUSHED WELL. PATIENT ON POT RELINER, NSR NOTED WITH HR IN 80S. PATIENT NPO ORDER ACKNOWLEDGED. PATIENT SAFETY MEASURES MAINTAINED.. CALL LIGHT WITHIN REACH. WILL CONTINUE TO MONITOR. VITAL SIGNS ON ADMISSION- T- 97.8, HR 79, 26 RESPIRATIONS, 98% O2 SATURATION, 199/107 BLOOD PRESSURE SCHEDULED MEDS GIVEN FOR BP.
[2020-08-10 13:55] LABS: CALCIUM, SERUM 8.4 mg/dL (8.5-10.1); CREATININE 6.9 mg/dL (0.6-1.3)
--- NOTE | 2020-08-10 13:58 | NUR ---
Social Service Note: ELIDIA called the [facility] ([phone]) and asked to speak to the Animal Control Services about pts dog that is alone in his home. ELIDIA was redirected to Officer Jessie who asked the SW for the pts home address and phone number. Once the information was gathered, Officer Jessie stated that he would go out to the apartment and retrieve the dog. He stated he would place the dog in a retirement until the pt is released from the hospital. Addendum: 08/10/20 at 1412 by ELIDIA YANG Officer Jessie ([phone])- [place] [employer]
[2020-08-10 14:03] LABS: POTASSIUM 7.3 mmol/L (3.5-5.1)
--- NOTE | 2020-08-10 14:59 | NUR ---
SS Consult: ELIDIA requested to assist with obtaining pt.s medical records (labs) from [facility]. ELIDIA called [facility] [phone] and spoke to Medical Records rep. who instructed SW to fax "Authorization for Use or Disclosure of Health Information" form to [phone]. ELIDIA completed Authorization for Use or disclosure of Health Information form and informed pt.s ICU nurseIvan to have attending physician sign form and then fax to [facility] [phone]. ELIDIA provided fax sheet. Pt. is not alert & oriented to provide consent. SW will be available as needed.
--- NOTE | 2020-08-10 18:32 | NUR ---
PATIENT IN BED. NO ACUTE DISTRESS NOTED. PATIENT CURRENTLY GOING THROUGH HEMODIALYSIS. PATIENT ON 4L NC, SATURATING WELL AT 96%. PATIENT A&OX3-4. PATIENT PRAVEEN IV ACCESS INTACT, PATENT, FLUSHED WELL. PATIENT RIGHT FEMORAL MARLON CATHETER IN PLACE FOR HEMODIALYSIS. PATIENT ON AMMUNITION ASSEMBLY LABORER, NSR NOTED WITH HR IN 80S. PATIENT NPO ORDER ACKNOWLEDGED. PATIENT SAFETY MEASURES MAINTAINED.. CALL LIGHT WITHIN REACH. WILL ENDORSE PLAN OF CARE TO ONCOMING SHIFT
--- NOTE | 2020-08-10 19:45 | NUR ---
RN NOTES RECEIVED PATIENT ON DIALYSIS DONE AT THIS TIME WITH 2.6 LITERS OUT AND TOLERATED WELL. PATIENT IS ALERT ORIENTED 4 SATURATION WELL. WITH O2 5LITERS NC. NSR ON TELE MONITOR. IV SITE INTACT AND PATENT. RIGHT FEMORAL ALEK CATH INTACT WELL PRAVEEN G 20 IV PATENT, CLEAN AND DRY. WILL CONTINUE MONITOR
[2020-08-10] MEDS: oxyCODONE HCL SR 10MG TAB.SR.12H PO SCH (20:10)
[2020-08-10] MEDS: CEFTRIAXONE 1 G in IV D5W 50 ML IV SCH (21:00)
[2020-08-10] MEDS: SIMVASTATIN 20 MG TABLET PO SCH (21:03)
[2020-08-11] VITALS (34 sets, daily range): BP systolic 146–197; BP diastolic 60–144
[2020-08-11] MEDS: NITROGLYCERIN PACKET 1 GM PACKET TOP SCH ×5 (00:09→23:52)
[2020-08-11] MEDS ORDERED: BISACODYL (5 MG) 5 MG TABLET.DR PO ONE (00:30)
[2020-08-11] MEDS ORDERED: MAGNESIUM HYDROXIDE 30 ML UDC PO PRN (00:30)
[2020-08-11] MEDS: hydrALAZINE HCL IV 20 MG VIAL IV PRN ×2 (01:25→06:36)
[2020-08-11] MEDS ORDERED: IPRATROPIUM/ALBUTEROL INHALER IH SCH (02:00)
[2020-08-11] MEDS: IPRATROPIUM NEB FS 0.5 MG/2.5 ML AMPUL.NEB NEB PRN ×2 (02:19→19:34)
[2020-08-11] MEDS: ALBUTEROL FS 2.5 MG/3 ML VIAL.NEB NEB PRN ×2 (02:20→19:34)
--- NOTE | 2020-08-11 02:33 | NUR ---
RN NOTES PATIENT IS RESTLESS COMPLAINING OF HAVING GAS AND ASKING FOR INHALER AND BREATHING TX. MEDICINE. MICHAELA NUÑEZ ON THE FLOOR WITH ORDER NOTED AND CARRIED OUT. ADMINISTERED TO PATIENT.
[2020-08-11] MEDS: SIMETHICONE 80 MG TAB.CHEW PO SCH ×4 (02:36→20:22)
[2020-08-11 05:01] LABS: BASOPHILS % (AUTO) 0.1 % (0.0-2.0); HEMATOCRIT 32 % (39-51); HEMOGLOBIN 10.3 g/dL (13.5-17.5); LYMPHOCYTES # (AUTO) 0.7 /CMM (0.8-4.8); LYMPHOCYTES % (AUTO) 5.6 % (20.0-44.0); MEAN CORPUSCULAR HGB CONC 32 g/dl (31.0-36.0); MEAN CORPUSCULAR VOLUME 90 fL (80-96); MONOCYTES # (AUTO) 1.4 /CMM (0.1-1.30); MONOCYTES % (AUTO) 11.3 % (2.0-12.0); NEUTROPHILS # (AUTO) 10.5 /CMM (1.8-8.9); PLATELET COUNT (AUTO) 234 /CMM (150-450); RED BLOOD CELL COUNT(AUTO) 3.58 MIL/uL (4.5-6.0); WHITE BLOOD COUNT (AUTO) 12.7 K/uL (4.3-11.0)
[2020-08-11 05:23] LABS: BILIRUBIN,TOTAL 0.3 mg/dL (0.2-1.0); CALCIUM, SERUM 8.2 mg/dL (8.5-10.1); CREATININE 6.2 mg/dL (0.6-1.3); MAGNESIUM 2.4 mg/dL (1.8-2.4); PHOSPHORUS 6.5 mg/dL (2.5-4.9); POTASSIUM 5.6 mmol/L (3.5-5.1); TOTAL PROTEIN, SERUM 7.4 g/dL (6.4-8.2)
[2020-08-11] MEDS: PANTOPRAZOLE 40 MG TABLET.DR PO SCH (06:34)
--- NOTE | 2020-08-11 07:30 | NUR ---
WAREHOUSE SELECTOR OPENING NOTES Patient is alert and oriented, breathing even and unlabored. Lung sounds cta. abdomen soft and non distended. Patient is on 4 lpm via n/c with 02 saturation of 98%. No c/o pain or discomfort. Noted with PRAVEEN IV access that is free from s/s of infiltration and patent. Right femoral Abhijeet catheter noted for hemodialysis. Will continue to monitor. Call light with in reach.
--- NOTE | 2020-08-11 07:35 | NUR ---
RN NOTES PATIENT ASLEEP AROUND 2 AM AFTER URINATING 700 CC ON URINAL PATIENT FEELS BETTER. HYPERTENSION STILL NOTED. DENIES HEADACHE, PRN HYDRALAZINE ADMINISTERED ORDERED. IV SITE REMAINED INTACT AND PATENT. IV ATB TOLERATED WITHOUT ASE PRESENT. KEPT PT CLEAN AND DRY. MINIMAL ASSISTANCE PROVIDED.
[2020-08-11] MEDS: BLOOD SUGAR DIAGNOSTIC 1 EACH STRIP VI SCH ×4 (08:44→21:15)
[2020-08-11] MEDS: methylPREDNISolone SOD SUCC 125 MG/2ML VIAL IV SCH ×2 (09:01→16:15)
[2020-08-11] MEDS: ASPIRIN 81 MG TAB.CHEW PO SCH (09:05)
[2020-08-11] MEDS: DOCUSATE SODIUM 100 MG CAPSULE PO SCH (09:05)
[2020-08-11] MEDS: hydrALAZINE HCL 50 MG TABLET PO SCH ×3 (09:05→17:10)
[2020-08-11] MEDS: CARVEDILOL 6.25 MG TABLET PO SCH ×2 (09:08→20:23)
[2020-08-11] MEDS: oxyCODONE HCL SR 10MG TAB.SR.12H PO SCH ×2 (09:09→20:22)
[2020-08-11] MEDS: oxyCODONE IR immediate release 5 MG PO SCH ×3 (09:09→16:16)
[2020-08-11] MEDS: INSULIN REGULAR, HUMAN 100 UNIT/ML 3 ML VIAL SQ PRN ×4 (09:10→22:00)
--- NOTE | 2020-08-11 11:30 | NUR ---
Patient sitting up in his chair and tolerating well.
--- NOTE | 2020-08-11 17:40 | NUR ---
ms rn received patient ,from icu,awake,alert,oriented x4,not in nay form of distress,respirations ecven and unlabored,no sob noted, lungs are diminished, abdomen soft,positive bowel sounds,denies pain at this time, will monitor partient.
--- NOTE | 2020-08-11 18:00 | NUR ---
Patient was transferred to Med surg at apprx 1730. Patient noted with 1100 cc of urine output during shift and one small bm. No s/s of hypo or hyperglycemia during shift.No respiratory distress noted. No c/o pain or discomfort. Patient transferred with 02 and tele box. Vitals stable, report given to Naima via phone and in person.
--- NOTE | 2020-08-11 18:20 | NUR ---
ms rn rn on bed, just have dinner, still w/ high b/p will give prn as ordered.
[2020-08-11] MEDS: HYDROCODONE/APAP 5/325MG TABLET PO PRN ×2 (18:44→23:56)
--- NOTE | 2020-08-11 18:45 | NUR ---
ms rn on bed,no distress noted, will monitor patient's condition.
--- NOTE | 2020-08-11 19:30 | NUR ---
MS/TELE/RN OPENING NOTE RECEIVED PATIENT RESTING IN BED. AWAKE, ALERT AND ORIENTED X 4. ABLE TO MAKE NEEDS KNOWN. NO COMPLAINTS OF PAIN AT THIS TIME. CONTINUES ON O2 VIA NC @ 5L WITH NO SIGNS OR SYMPTOMS OF RESPIRATORY DISTRESS NOTED. IV ACCES TO RIGHT UPPER ARM INTACT AND PATENT. CONTINUES ON IV ABX. CALL LIGHT WITHIN REACH. ASPIRATION, FALL AND SAFETY PRECAUTIONS MAINTAINED. WILL CONTINUE TO MONITOR.
[2020-08-11] MEDS: SIMVASTATIN 20 MG TABLET PO SCH (21:15)
[2020-08-11] MEDS ORDERED: CEFTRIAXONE 1 G VIAL ONE (21:37)
[2020-08-11] MEDS: CEFTRIAXONE 1 G in IV D5W 50 ML IV SCH (21:46)
--- NOTE | 2020-08-11 22:03 | NUR ---
MS/FLUTE TEACHER NOTE CHARGE NURSE OVERRIDE 1GM ROCEPHIN DUE TO MEDICATION NOT AVAILABLE IN CASSETTE. PATIENT WAS A TRANSFER FROM ICU. CALLED ICU TO CHECK FOR MEDICATION. MEDICATION WAS NOT AVAILABLE. ALREADY PHARMACY AFTER HOURS.
[2020-08-12] VITALS: BP 153/80
[2020-08-12] MEDS: SIMETHICONE 80 MG TAB.CHEW PO SCH ×4 (02:08→20:36)
[2020-08-12 04:00] VITALS: BP 160/93
[2020-08-12] MEDS: NITROGLYCERIN PACKET 1 GM PACKET TOP SCH ×4 (05:32→23:47)
[2020-08-12] MEDS: INSULIN REGULAR, HUMAN 100 UNIT/ML 3 ML VIAL SQ PRN ×3 (06:24→17:59)
[2020-08-12 06:37] LABS: BASOPHILS % (AUTO) 0.3 % (0.0-2.0); HEMATOCRIT 32 % (39-51); HEMOGLOBIN 10.4 g/dL (13.5-17.5); LYMPHOCYTES # (AUTO) 0.8 /CMM (0.8-4.8); LYMPHOCYTES % (AUTO) 8.2 % (20.0-44.0); MEAN CORPUSCULAR HGB CONC 33 g/dl (31.0-36.0); MEAN CORPUSCULAR VOLUME 90 fL (80-96); MONOCYTES # (AUTO) 1.3 /CMM (0.1-1.30); NEUTROPHILS # (AUTO) 7.9 /CMM (1.8-8.9); NEUTROPHILS % (AUTO) 78.5 % (43.0-81.0); PLATELET COUNT (AUTO) 238 /CMM (150-450); RED BLOOD CELL COUNT(AUTO) 3.55 MIL/uL (4.5-6.0); WHITE BLOOD COUNT (AUTO) 10.1 K/uL (4.3-11.0)
[2020-08-12] MEDS: HYDROCODONE/APAP 5/325MG TABLET PO PRN ×2 (06:45→20:35)
--- NOTE | 2020-08-12 06:49 | NUR ---
MS/TRAIN BRAKEMAN CLOSING NOTE PATIENT CURRENTLY RESTING IN BED. AWAKE, ALERT AND ORIENTED X 4. ABLE TO MAKE NEEDS KNOWN. COMPLAINTS OF CHRONIC BACK PAIN THROUGHOUT THIS SHIFT. GIVEN PRN NORCO AND ROUTINE PAIN MEDS WITH FAIR EFFECT. IV ACCESS TO RIGHT UPPER ARM #20G INTACT AND PATENT. RIGHT FEMORAL HEMODIALYSIS CATH INTACT. PATIENT WITH COMPLAINTS OF CONSTIPATION THIS SHIFT. PATIENT HAD MULTIPLE LARGE BM'S. CONTINUES ON O2 VIA NC @ 5L WITH NO SIGNS OR SYMPTOMS OF RESPIRATORY DISTRESS NOTED. CALL LIGHT WITHIN REACH. ASPIRATION, FALL AND SAFETY PRECAUTIONS MAINTAINED. WILL ENDORSE PLAN OF CARE TO ONCOMING SHIFT.
[2020-08-12 07:05] LABS: CREATININE 5.5 mg/dL (0.6-1.3); POTASSIUM 5.8 mmol/L (3.5-5.1)
[2020-08-12] MEDS: PANTOPRAZOLE 40 MG TABLET.DR PO SCH (07:42)
[2020-08-12] MEDS: BLOOD SUGAR DIAGNOSTIC 1 EACH STRIP VI SCH ×4 (07:48→21:52)
--- NOTE | 2020-08-12 07:50 | NUR ---
MS/RN OPENING NOTE RECEIVED PATIENT FROM PRESCHOOL TEACHER ASSISTANT NURSE. PATIENT IS AWAKE IN BED, A/O X4. PATIENT IN NO ACUTE DISTRESS NOTED. PATIENT ON OXYGEN VIA NASAL CANNULA 6L/MIN, TOLERATING WELL. BREATHING EVEN NON LABORED, NO SOB NOTED. PRAVEEN #20 INTACT AND PATENT. SAFETY MEASURES IN PLACE, BED LOCKED AND IN LOWEST POSITION, CALL LIGHT WITHIN REACH. WILL CONTINUE TO MONITOR AND ENSURE SAFETY.
[2020-08-12 08:00] VITALS: BP 183/90
[2020-08-12 08:07] LABS: CREATININE KINASE (CK),MB 9.4 ng/mL (0.0-10.4); PTH, INTACT 216 pg/mL (15-65)
[2020-08-12] MEDS: ASPIRIN 81 MG TAB.CHEW PO SCH (08:19)
[2020-08-12] MEDS: hydrALAZINE HCL 50 MG TABLET PO SCH ×3 (08:19→17:00)
[2020-08-12] MEDS: methylPREDNISolone SOD SUCC 125 MG/2ML VIAL IV SCH ×2 (08:20→16:28)
[2020-08-12] MEDS: oxyCODONE IR immediate release 5 MG PO SCH ×3 (08:20→16:28)
[2020-08-12] MEDS: CARVEDILOL 6.25 MG TABLET PO SCH ×2 (08:20→20:36)
[2020-08-12] MEDS: DOCUSATE SODIUM 100 MG CAPSULE PO SCH (08:21)
[2020-08-12] MEDS: oxyCODONE HCL SR 10MG TAB.SR.12H PO SCH ×3 (08:22→16:28)
[2020-08-12] MEDS ORDERED: SODIUM POLYSTYRENE SULFONATE 15 G/60 ML BOTTLE PO ONE (09:30)
[2020-08-12 13:45] LABS: BAND % (MANUAL) 1 % (0.0-5.0); LYMPHOCYTES % (MANUAL) 10 % (16-48); MONOCYTES % (MANUAL) 12 % (0-11.0); MYELOCYTES % 3 % (0-0); NEUTROPHILS % (MANUAL) 74 (42-76)
[2020-08-12] MEDS: IPRATROPIUM NEB FS 0.5 MG/2.5 ML AMPUL.NEB NEB PRN ×2 (13:56→20:18)
[2020-08-12] MEDS: ALBUTEROL FS 2.5 MG/3 ML VIAL.NEB NEB PRN ×2 (13:56→20:18)
[2020-08-12 16:00] VITALS: BP 173/66
[2020-08-12 17:06] LABS: *SPE A/G RATIO 0.8 (0.7-1.7); *SPE ALPHA-1-GLOBULIN 0.4 g/dL (0.0-0.4); *SPE BETA GLOBULIN 1.3 g/dL (0.7-1.3); *SPE GLOBULIN, TOTAL 3.7 g/dL (2.2-3.9); *SPE M-SPIKE Not Observed g/dL (Not Observed)
--- NOTE | 2020-08-12 18:16 | NUR ---
MS/RN NOTES RE NON ADMIN ON HYDRALAZINE @ 1700: PT STARTED DIALYSIS AT APPROX 16:30, DIALYSIS NURSE SUGGESTED AGAINST ANY BP LOWERING AGENT ADMINISTRATION.
--- NOTE | 2020-08-12 18:27 | NUR ---
MS/RN CLOSING NOTE PATIENT IS AWAKE IN BED, A/O X4. PATIENT IN NO ACUTE DISTRESS NOTED. PATIENT ON OXYGEN VIA NASAL CANNULA 6L/MIN, TOLERATING WELL. BREATHING EVEN NON LABORED, NO SOB NOTED. RAC #20 INTACT AND PATENT. SAFETY MEASURES IN PLACE, BED LOCKED AND IN LOWEST POSITION, CALL LIGHT WITHIN REACH. ALL NEEDS MET THROUGHOUT THE SHIFT. WILL ENDORSE TO CATTLE CARE WORKER NURSE.
--- NOTE | 2020-08-12 18:41 | NUR ---
MS/RN NOTES RE NON ADMIN ON NITRO BID @ 1800: PT STARTED DIALYSIS AT APPROX 16:30, DIALYSIS NURSE SUGGESTED AGAINST ADMINISTRATION OF ANY BP LOWERING AGENT
--- NOTE | 2020-08-12 19:52 | NUR ---
RETAIL CASHIER ASSOCIATE OPENING NOTES PATIENT A/O X4; ABLE TO MAKE NEEDS KNOWN. ON O2 4LPM VIA NASAL CANNULA; TOLERATING WELL ON EXTERNAL CARDIAC MONITORING; READS SR AND HR AT 92. IV ON RAC #20; PATENT AND INTACT. RIGHT FEMORAL HD CATHETER INTACT; DRESSING C/D/I. SAFETY MEASURES IN PLACE: BED LOCKED IN LOWEST POSITION; SIDE RAILS UP X2; CALL LIGHT WITHIN EASY REACH. WILL CONTINUE TO MONITOR.
[2020-08-12 20:00] VITALS: BP 193/123
--- NOTE | 2020-08-12 20:35 | NUR ---
FOUR CORNER STAYER MACHINE OPERATOR NOTES - PAIN PATIENT C/O BACK PAIN 02/14. ADMINISTERED NORCO 5-325MG. WILL CONTINUE TO ASSESS.
[2020-08-12] MEDS: SIMVASTATIN 20 MG TABLET PO SCH (21:32)
[2020-08-12] MEDS: CEFTRIAXONE 1 G in IV D5W 50 ML IV SCH (21:32)
--- NOTE | 2020-08-12 21:35 | NUR ---
DEALER SALES MANAGER NOTES PATIENT STATED HE IS USING A CPAP AT HOME AND IS REQUESTING FOR CPAP. NOTED WITH POTASSIUM 5.8. NOTIFIED [facility] DEBIT AGENT, AND STATED NOTIFY RT. LARON MAN AWARE. NO NEW ORDERS FOR POTASSIUM, PATIENT HAD HD EARLIER TODAY. ORDERED HEPARIUN 5000U EVERY 12 HR FOR PPX. ORDERS CARRIED OUT
--- NOTE | 2020-08-12 22:00 | NUR ---
SCENARIO WRITER NOTES - BLOOD SUGAR TOOK BLOOD SUGAR AT 2147 - BLOOD SUGAR NOTED TO BE 497, CHECKED TWICE TO VERIFY READING. ORDERED RANDOM GLUCOSE CHECK AND AWAITING RESULTS. PATIENT NOT NOTED WITH S/S HIGH BLOOD SUGAR. CHARGE NURSE AWARE
[2020-08-12] MEDS: *INSULIN REGULAR(HUMULIN R)HUM 100 UNIT/ML VIAL SQ PRN (23:45)
[2020-08-12] MEDS: ALPRAZOLAM 0.25 MG TABLET PO PRN (23:46)
--- NOTE | 2020-08-12 23:50 | NUR ---
GRANT WRITER NOTES @5389 JOSE FROM LAB REPORTED CRITICAL BS 544. PATIENT C/O ANXIETY AND REQUESTED FOR ANXIETY MEDICATION. PATIENT REQUESTED TO CHANGE TIMES OF OXYCONTIN 10MG AND OXYCODONE 5MG TO 0600, 1400, AND 2200 NOTIFIED RUBENS CAMPAIGN MANAGEMENT SENIOR MANAGER AND ORDERED: -ADDITIONAL 6 UNITS OF INSULIN TO MODERATE REGULAR INSULIN SLIDING SCALE. TOTAL REGULAR INSULIN 16 UNITS ADMINISTERED -XANAX 0.5MG PO EVERY 4 HOURS PRN. ADMINISTERED @ 8474. EDUCATED PATIENT RELAXATION TECHNIQUES. WILL CONTINUE TO MONITOR. -RUBENS STATED OKAY TO CHANGE TIMES OF OXYCONTIN 10MG AND OXYCODONE 5MG TO 0600, 1400, AND 2200. ORDERS CARRIED OUT.
--- NOTE | 2020-08-12 23:50 | NUR ---
FLOOR ATTENDANT NOTES GINA ART ORDERED FOR BMP STAT FOR HIGH BLOOD SUGAR. ORDERED AND AWAITING RESULTS.
[2020-08-13] MEDS: SIMETHICONE 80 MG TAB.CHEW PO SCH ×4 (03:16→21:01)
[2020-08-13 04:00] VITALS: BP 159/114
--- NOTE | 2020-08-13 04:34 | NUR ---
HARDNESS TESTER NOTES - IV RAC IV DISLODGED; BLEEDING CONTROLLED. ATTEMPTED PERIPHERAL IV INSERTION X3 BY 3 RN'S; AND UNSUCCESSFUL. ASKED [facility] ADMINISTRATOR FOR MIDLINE INSERTION, OKAYED, AND ORDERED. CHARGE NURSE AWARE.
[2020-08-13 05:07] LABS: COMPLEMENT C3, SERUM 168 mg/dL (82-167); COMPLEMENT C4, SERUM 65 mg/dL (12-38)
[2020-08-13] MEDS: NITROGLYCERIN PACKET 1 GM PACKET TOP SCH ×3 (05:54→17:18)
[2020-08-13] MEDS ORDERED: oxyCODONE HCL SR 10MG TAB.SR.12H PO SCH (06:00)
[2020-08-13] MEDS ORDERED: oxyCODONE IR immediate release 5 MG PO SCH (06:00)
[2020-08-13] MEDS: oxyCODONE HCL SR 10MG TAB.SR.12H PO SCH ×3 (06:20→21:00)
--- NOTE | 2020-08-13 06:36 | NUR ---
POLICY WRITER SALES CLOSING NOTES PATIENT A/O X4; ABLE TO MAKE NEEDS KNOWN. ON O2 3LPM VIA NASAL CANNULA; TOLERATING WELL ON EXTERNAL CARDIAC MONITORING; READS SR AND HR AT 80. IV DISLODGED; MIDLINE INSERTION PENDING. RIGHT FEMORAL HD CATHETER INTACT; DRESSING C/D/I. SAFETY MEASURES IN PLACE: BED LOCKED IN LOWEST POSITION; SIDE RAILS UP X2; CALL LIGHT WITHIN EASY REACH. WILL ENDORSE MELY TO ONCOMING RN
[2020-08-13] MEDS: PANTOPRAZOLE 40 MG TABLET.DR PO SCH (07:12)
[2020-08-13] MEDS: IPRATROPIUM NEB FS 0.5 MG/2.5 ML AMPUL.NEB NEB PRN ×3 (07:12→23:23)
[2020-08-13] MEDS: BLOOD SUGAR DIAGNOSTIC 1 EACH STRIP VI SCH ×4 (07:12→22:27)
[2020-08-13] MEDS: ALBUTEROL FS 2.5 MG/3 ML VIAL.NEB NEB PRN ×3 (07:13→23:23)
[2020-08-13] MEDS: INSULIN REGULAR, HUMAN 100 UNIT/ML 3 ML VIAL SQ PRN ×3 (07:19→16:54)
--- NOTE | 2020-08-13 07:20 | NUR ---
MANAGER ANIMATION OPENING NOTES RECEIVED PATIENT IN BED WITH ONGOING NEBULIZATION WITH RT. A/O X4. NC ON 3 LPM. NO S/S OF RESPIRATORY DISTRESS. NO IV ACCESS RIGHT NOW, CAFETERIA TABLE ATTENDANT NURSE ORDERED FOR A MIDLINE INSERTION, WILL FOLLOW UP. HAS R FEMORAL HD CATH. SAFETY MEASURES MAINTAINED. BED IN LOWEST POSITION, BRAKES LOCKED. SIDE RAILS UP X2. CALL LIGHT WITHIN REACH. WILL CONTINUE PLAN OF CARE.
[2020-08-13 07:32] LABS: CALCIUM, SERUM 8.2 mg/dL (8.5-10.1); CREATININE 4.2 mg/dL (0.6-1.3); POTASSIUM 4.3 mmol/L (3.5-5.1)
[2020-08-13 08:00] VITALS: BP 155/82
--- NOTE | 2020-08-13 08:11 | NUR ---
ADMINISTRATIVE STAFF SUPERVISOR NOTES ORDERED BARIATRIC BED FROM [facility]; LEFT A VOICE MESSAGE. WILL ENDORSE FOR MORNING RN TO FOLLOW UP. DR. KILGORE ORDERED FOR PATIENT TO HAVE BIPAP SETTINGS / EVERY NIGHT. ORDERS CARRIED OUT.
[2020-08-13] MEDS: methylPREDNISolone SOD SUCC 125 MG/2ML VIAL IV SCH ×2 (09:00→16:25)
--- NOTE | 2020-08-13 09:00 | NUR ---
RN NOTES SOLU-MEDROL HELD. NO IV ACCESS. WILL FOLLOW UP FOR MIDLINE INSERTION.
[2020-08-13] MEDS: ASPIRIN 81 MG TAB.CHEW PO SCH (09:51)
[2020-08-13] MEDS: DOCUSATE SODIUM 100 MG CAPSULE PO SCH (09:51)
[2020-08-13] MEDS: CARVEDILOL 6.25 MG TABLET PO SCH ×2 (09:53→21:02)
[2020-08-13] MEDS: hydrALAZINE HCL 50 MG TABLET PO SCH ×3 (09:53→16:25)
[2020-08-13] MEDS: HEPARIN SODIUM, PORCINE 5000 UNITS/1 ML VIAL SQ SCH ×2 (09:58→21:07)
[2020-08-13] MEDS: ALPRAZOLAM 0.25 MG TABLET PO PRN ×4 (10:01→23:03)
[2020-08-13 10:07] LABS: *ANA ANTI-CENTROMERE B AB <0.2 AI (0.0-0.9); *ANA ANTI-DNA(DS) AB, QN <1 IU/mL (0-9); *ANA ANTI-JO-1 <0.2 AI (0.0-0.9); *ANA ANTICHROMATIN ANTIBODY <0.2 AI (0.0-0.9); *ANA RNP ANTIBODIES <0.2 AI (0.0-0.9); *ANA SJOGREN'S ANTI-SS-A <0.2 AI (0.0-0.9); *ANA SJOGREN'S ANTI-SS-B <0.2 AI (0.0-0.9); *ANAANTI-SCLERODERMA-70 AB <0.2 AI (0.0-0.9); *ANASMITH AB <0.2 AI (0.0-0.9)
--- NOTE | 2020-08-13 10:30 | NUR ---
RN NOTES D/C TELEMETRY
[2020-08-13] MEDS ORDERED: oxyCODONE IR immediate release 5 MG PO PRN (13:00)
[2020-08-13] MEDS: HYDROCODONE/APAP 5/325MG TABLET PO PRN (14:16)
[2020-08-13 16:00] VITALS: BP 151/83
--- NOTE | 2020-08-13 17:03 | NUR ---
RN NOTES PATIENT WANTS TO GO AMA. INFORMED DR RAMOS, HE SAID WOULD NOT RECOMMEND. SPOKE WITH THE PATIENT AND TOLD HIM WHAT MIGHT BE THE CONSEQUENCES, CONVINCED THE PATIENT TO STAY.
--- NOTE | 2020-08-13 18:15 | NUR ---
RN NOTES SET THE BARIMAXX II BED WITH AIR MATTRESS UP ON PATIENT'S ROOM.
--- NOTE | 2020-08-13 18:28 | NUR ---
MS RN CLOSING NOTES PATIENT SITTING ON A CHAIR. A/O X4. NC ON 3 LPM. NO S/S OF RESPIRATORY DISTRESS. R FEMORAL HD CATH. ABLE TO MAKE NEEDS KNOWN. ROUTINE MEDS WERE GIVEN ORDERED. SAFETY MEASURES MAINTAINED. BED IN LOWEST POSITION, BRAKES LOCKED. SIDE RAILS UP X2. CALL LIGHT WITHIN REACH. WILL ENDORSE TO TECHNOLOGY ARCHITECT FOR MELY.
--- NOTE | 2020-08-13 19:46 | NUR ---
MS RN OPENING NOTES PATIENT A/O X4; ABLE TO MAKE NEEDS KNOWN. ON ROOM AIR; TOLERATING WELL. R FEMORAL HD CATH PATENT AND INTACT; DRESSING KEPT C/D/I. DENIES PAIN OR DISCOMFORT AT THIS TIME. SAFETY MEASURES IN PLACE: BED LOCKED IN LOWEST POSITION; SIDE RAILS UP X2; CALL LIGHT WITHIN EASY REACH. WILL CONTINUE TO MONITOR.
[2020-08-13 20:00] VITALS: BP 108/105
[2020-08-13] MEDS: oxyCODONE IR immediate release 5 MG PO SCH (21:08)
[2020-08-13] MEDS: CEFTRIAXONE 1 G in IV D5W 50 ML IV SCH (22:18)
[2020-08-13] MEDS: *INSULIN REGULAR(HUMULIN R)HUM 100 UNIT/ML VIAL SQ PRN (22:57)
[2020-08-13] MEDS: SIMVASTATIN 20 MG TABLET PO SCH (23:02)
[2020-08-14] MEDS: NITROGLYCERIN PACKET 1 GM PACKET TOP SCH ×4 (00:41→17:27)
[2020-08-14] MEDS: HYDROCODONE/APAP 5/325MG TABLET PO PRN (03:13)
[2020-08-14] MEDS: SIMETHICONE 80 MG TAB.CHEW PO SCH ×4 (03:13→20:47)
[2020-08-14] MEDS: ALPRAZOLAM 0.25 MG TABLET PO PRN ×4 (03:21→21:08)
[2020-08-14] MEDS: oxyCODONE HCL SR 10MG TAB.SR.12H PO SCH ×3 (05:31→20:48)
[2020-08-14] MEDS: oxyCODONE IR immediate release 5 MG PO SCH ×3 (05:31→20:48)
[2020-08-14] MEDS ORDERED: oxyCODONE IR immediate release 5 MG PO SCH (06:00)
[2020-08-14 06:23] LABS: BASOPHILS % (AUTO) 0.1 % (0.0-2.0); EOSINOPHILS % (AUTO) 0.1 % (0.0-6.0); HEMATOCRIT 29 % (39-51); HEMOGLOBIN 9.5 g/dL (13.5-17.5); LYMPHOCYTES # (AUTO) 1.1 /CMM (0.8-4.8); LYMPHOCYTES % (AUTO) 12.1 % (20.0-44.0); MEAN CORPUSCULAR HGB CONC 33 g/dl (31.0-36.0); MEAN CORPUSCULAR VOLUME 91 fL (80-96); MONOCYTES # (AUTO) 0.9 /CMM (0.1-1.30); MONOCYTES % (AUTO) 10.2 % (2.0-12.0); NEUTROPHILS # (AUTO) 6.9 /CMM (1.8-8.9); NEUTROPHILS % (AUTO) 77.5 % (43.0-81.0); PLATELET COUNT (AUTO) 199 /CMM (150-450); RED BLOOD CELL COUNT(AUTO) 3.17 MIL/uL (4.5-6.0); WHITE BLOOD COUNT (AUTO) 8.9 K/uL (4.3-11.0)
[2020-08-14 06:53] LABS: CALCIUM, SERUM 7.2 mg/dL (8.5-10.1); CREATININE 3.9 mg/dL (0.6-1.3); POTASSIUM 4.4 mmol/L (3.5-5.1)
[2020-08-14] MEDS: INSULIN REGULAR, HUMAN 100 UNIT/ML 3 ML VIAL SQ PRN ×4 (06:59→17:22)
[2020-08-14] MEDS: PANTOPRAZOLE 40 MG TABLET.DR PO SCH (07:00)
--- NOTE | 2020-08-14 07:30 | NUR ---
MS/RN OPENING NOTE Received patient awake in bed, A&O x 4. Denies any pain/discomfort at this time. Breathing even and non-labored on 2L oxygen via NC, no SOB noted. No cardiac distress noted. R groin femoral HD cath in place, patent and intact. Bed locked to its lowest position, side rails x 2 up, call light in hand. Will continue with current medical management.
[2020-08-14] MEDS: BLOOD SUGAR DIAGNOSTIC 1 EACH STRIP VI SCH ×4 (07:33→23:29)
--- NOTE | 2020-08-14 07:59 | NUR ---
MS RN CLOSING NOTES PATIENT A/O X4; ABLE TO MAKE NEEDS KNOWN. ON O2 3LPM VIA NASAL CANNULA; TOLERATING WELL ON EXTERNAL . RIGHT FEMORAL HD CATHETER INTACT; DRESSING C/D/I. BIPAP AT BEDTIME SETTINGS: 18/12 FIO2 40%, NOTED WITH DISCOMFORT USING THE BIPAP. SAFETY MEASURES IN PLACE: BED LOCKED IN LOWEST POSITION; SIDE RAILS UP X2; CALL LIGHT WITHIN EASY REACH. WILL ENDORSE MELY TO ONCOMING RN
[2020-08-14] MEDS: hydrALAZINE HCL 50 MG TABLET PO SCH ×3 (08:20→17:27)
[2020-08-14] MEDS: ASPIRIN 81 MG TAB.CHEW PO SCH (08:21)
[2020-08-14] MEDS: DOCUSATE SODIUM 100 MG CAPSULE PO SCH (08:21)
[2020-08-14] MEDS: methylPREDNISolone SOD SUCC 125 MG/2ML VIAL IV SCH ×2 (08:22→17:28)
[2020-08-14] MEDS: CARVEDILOL 6.25 MG TABLET PO SCH ×2 (08:22→20:47)
[2020-08-14 08:29] VITALS: BP 186/87
[2020-08-14] MEDS: HEPARIN SODIUM, PORCINE 5000 UNITS/1 ML VIAL SQ SCH ×2 (08:32→20:51)
--- NOTE | 2020-08-14 08:52 | NUR ---
MS/RN NOTE Patient states that he feels anxious, requests for xanax PRN. Administered as ordered.
[2020-08-14] MEDS: IPRATROPIUM/ALBUTEROL INHALER IH PRN ×2 (15:04→21:15)
[2020-08-14] MEDS: IPRATROPIUM NEB FS 0.5 MG/2.5 ML AMPUL.NEB NEB SCH ×3 (15:53→22:49)
[2020-08-14] MEDS: ALBUTEROL FS 2.5 MG/3 ML VIAL.NEB NEB SCH ×3 (15:54→22:49)
[2020-08-14 16:06] VITALS: BP 198/100
--- NOTE | 2020-08-14 16:30 | NUR ---
MS/RN NOTE Patient ordering 1 box of pizza, wings, and 2 liters of soda. Told patient about the consequences of high blood sugar, insists on eating the food he "wants," he states he's "already staying in a hospital, might as well enjoy my stay."
--- NOTE | 2020-08-14 16:50 | NUR ---
MS/RN NOTE Patient's repeated BS noted at 439, administered 15 units of regular insulin following protocol and notified Dr. Duncan. Ordered to administer another 15 units of regular insulin sq. Orders carried out, will continue to monitor for any adverse effects.
--- NOTE | 2020-08-14 17:27 | NUR ---
MS/RN NOTE Patient states that he feels anxious again, requests for xanax PRN. Administered as ordered.
--- NOTE | 2020-08-14 19:00 | NUR ---
MS/RN NOTE RECHECK-ED BS AFTER AN HOUR OF ADMINISTRATION OF 2 DOSES OF 15 UNITS REGULAR INSULIN, BS NOTED TO BE AT 500. NOTIFIED DR. GODWIN, STATES "IF STILL ELEVATED, ADMINISTER ANOTHER 15 UNITS OF REGULAR INSULIN IN 2 HOURS." ORDERS CARRIED OUT, WILL ENDORSE TO ACCOUNT CONTACT ASSOCIATE NURSE. Addendum: 08/14/20 at 1922 by EVIE IRWIN RN PT IS STABLE, NO S/S OF HYPERGLYCEMIA NOTED. DENIES ANY HEADACHES, DIZZINESS, PAIN. REMAINS A &O X 4.
--- NOTE | 2020-08-14 19:11 | NUR ---
MS/RN NOTE Patient's repeated BS noted at 439, administered 15 units of regular insulin following protocol and notified Dr. Duncan. Ordered to administer another 15 units of regular insulin sq. Orders carried out, will continue to monitor for any adverse effects. Addendum: 08/14/20 at 1925 by EVIE IRWIN RN WRONG TIME DOCUMENTED, MUST BE AT 1650
--- NOTE | 2020-08-14 19:25 | NUR ---
DISREGARD NOTE BELOW, WRONG TIME DOCUMENTED
--- NOTE | 2020-08-14 19:28 | NUR ---
MS/RN CLOSING NOTE Patient awake in bed, watching TV, A&O x 4. All needs met and attended to. Denies any pain/discomfort at this time. Breathing even and non-labored on 2L oxygen via NC, no SOB noted. No cardiac distress noted. R groin femoral HD cath in place, patent and intact. Fall precautions maintained. Will endorse to slot shift supervisor nurse.
[2020-08-14 20:00] VITALS: BP 178/83
[2020-08-14] MEDS: *INSULIN REGULAR(HUMULIN R)HUM 100 UNIT/ML VIAL SQ PRN ×2 (20:16→23:33)
--- NOTE | 2020-08-14 20:26 | NUR ---
MS NEENA NOTES ENDORSED BY EVIE THAT PATIENT'S BLOOD SUGAR WAS [address] NUGENT ORDERS TO ENDORSE 15 UNITS IF ITS STILL HIGH. RECHECKED BLOOD SUGAR AND WAS 466. ADMINISTERED 15 UNITS. PATIENT SHOWS NO S/S OF HYPERGLYCEMIA. WILL CONTINUE TO MONITOR. Addendum: 08/14/20 at 2031 by HUSSAIN LAWSON RN CORRECTION BLOOD SUGAR 446 @ 2022
[2020-08-14] MEDS: SIMVASTATIN 20 MG TABLET PO SCH (21:03)
--- NOTE | 2020-08-14 21:08 | NUR ---
MS RN NOTES PATIENT C/O FEELING ANXIOUS. STATES FEELING SOB MAKES HIM ANXIOUS. ADMINISTERED XANAX 0.5MG PO ORDERED. ADMINISTERED ALBUTEROL INHALER X3 PUFFS. WILL CONTINUE TO MONITOR.
--- NOTE | 2020-08-14 23:29 | NUR ---
RT NOTES Pt is refusing BIPAP. Pt said he had trouble sleeping with it the previous night. No signs of distress noted at this time. RN aware.
--- NOTE | 2020-08-15 00:35 | NUR ---
MS RN NOTES - BLOOD SUGAR NOTIFIED MICHAELA FERRELL FILTER WORKER THAT PATIENT'S BLOOD SUGAR AT 1910 WAS 500 AND AT 2022, BS WAS 446. PER DR. GODWIN'S ORDER ADMINISTERED 15 UNITS OF REGULAR INSULIN. BLOOD SUGAR AT 2319 WAS 397, ADMINISTERED 10 UNITS ORDERED PER SLIDING SCALE. NO NEW ORDERS NOTED. RN PURCHASING ANALYST AWARE.
[2020-08-15] MEDS: ALPRAZOLAM 0.25 MG TABLET PO PRN ×2 (02:41→12:35)
[2020-08-15] MEDS: HYDROCODONE/APAP 5/325MG TABLET PO PRN (02:41)
[2020-08-15] MEDS: SIMETHICONE 80 MG TAB.CHEW PO SCH ×2 (02:41→09:00)
--- NOTE | 2020-08-15 02:41 | NUR ---
MS RN NOTES - PRN MEDS PATIENT C/O FEELING ANXIOUS. ADMINISTERED XANAX 0.5MG PO. ENCOURAGED ANXIETY REDUCING INTERVENTION TECHNIQUES. PATIENT C/O 7/10 PAIN ON BACK/ ADMINISTERED NORCO 5-325MG PO. WILL CONTINUE TO MONITOR FOR ANXIETY AND PAIN.
--- NOTE | 2020-08-15 03:03 | NUR ---
MS NEENA NOTES - MICHAELA NERI ORDERED FOR LANTUS 15 UNITS AT . ORDERS CARRIED OUT.
[2020-08-15] MEDS: ALBUTEROL FS 2.5 MG/3 ML VIAL.NEB NEB SCH ×4 (03:31→13:41)
[2020-08-15] MEDS: IPRATROPIUM NEB FS 0.5 MG/2.5 ML AMPUL.NEB NEB SCH ×4 (03:31→13:41)
--- NOTE | 2020-08-15 03:58 | NUR ---
MS RN NOTES - ORDERED FOR PATIENT TO HAVE DIETARY CONSULT D/T HIGH BLOOD SUGAR.
[2020-08-15] MEDS: oxyCODONE HCL SR 10MG TAB.SR.12H PO SCH ×2 (06:22→12:28)
[2020-08-15] MEDS: NITROGLYCERIN PACKET 1 GM PACKET TOP SCH ×3 (06:23→12:30)
[2020-08-15] MEDS: oxyCODONE IR immediate release 5 MG PO SCH ×2 (06:23→12:30)
[2020-08-15 07:09] LABS: BASOPHILS % (AUTO) 0.2 % (0.0-2.0); HEMATOCRIT 30 % (39-51); HEMOGLOBIN 9.8 g/dL (13.5-17.5); LYMPHOCYTES # (AUTO) 0.7 /CMM (0.8-4.8); LYMPHOCYTES % (AUTO) 7.9 % (20.0-44.0); MEAN CORPUSCULAR HGB CONC 32 g/dl (31.0-36.0); MEAN CORPUSCULAR VOLUME 91 fL (80-96); MONOCYTES # (AUTO) 0.7 /CMM (0.1-1.30); MONOCYTES % (AUTO) 7.9 % (2.0-12.0); PLATELET COUNT (AUTO) 199 /CMM (150-450); RED BLOOD CELL COUNT(AUTO) 3.33 MIL/uL (4.5-6.0); WHITE BLOOD COUNT (AUTO) 9.5 K/uL (4.3-11.0)
[2020-08-15 07:30] LABS: CALCIUM, SERUM 7.7 mg/dL (8.5-10.1); CREATININE 3.6 mg/dL (0.6-1.3); MAGNESIUM 2.1 mg/dL (1.8-2.4); PHOSPHORUS 4.5 mg/dL (2.5-4.9); POTASSIUM 5.1 mmol/L (3.5-5.1)
[2020-08-15] MEDS: INSULIN REGULAR, HUMAN 100 UNIT/ML 3 ML VIAL SQ PRN ×2 (07:33→11:52)
--- NOTE | 2020-08-15 07:37 | NUR ---
MS/RN OPENING NOTES RECEIVED PATIENT ON BED, AWAKE ALERT AND ORIENTED X4. PATIENT IS ON 2L OXYGEN VIA NASAL CANNULA. PATIENT IN NO APPARENT RESPIRATORY DISTRESS NOTED. NO COMPLAINED OF PAIN AT THIS TIME. WILL CONTINUE TO MONITOR.
[2020-08-15] MEDS: PANTOPRAZOLE 40 MG TABLET.DR PO SCH (07:44)
[2020-08-15] MEDS: BLOOD SUGAR DIAGNOSTIC 1 EACH STRIP VI SCH ×2 (07:47→11:45)
[2020-08-15 08:00] VITALS: BP 190/99
--- NOTE | 2020-08-15 08:30 | NUR ---
MS RN CLOSING NOTES PATIENT A/O X4; ABLE TO MAKE NEEDS KNOWN. ON O2 3LPM VIA NASAL CANNULA; TOLERATING WELL. REFUSED TO USE BIPAP DUE TO DISCOMFORT; RT AWARE. RIGHT FEMORAL HD CATHETER INTACT; DRESSING C/D/I. SAFETY MEASURES IN PLACE: BED LOCKED IN LOWEST POSITION; SIDE RAILS UP X2; CALL LIGHT WITHIN EASY REACH. ENDORSED MELY TO ONCOMING RN.
[2020-08-15] MEDS: ASPIRIN 81 MG TAB.CHEW PO SCH (08:48)
[2020-08-15] MEDS: DOCUSATE SODIUM 100 MG CAPSULE PO SCH (08:48)
[2020-08-15] MEDS: methylPREDNISolone SOD SUCC 125 MG/2ML VIAL IV SCH (08:48)
[2020-08-15] MEDS: HEPARIN SODIUM, PORCINE 5000 UNITS/1 ML VIAL SQ SCH (08:52)
[2020-08-15] MEDS: CARVEDILOL 6.25 MG TABLET PO SCH (08:55)
[2020-08-15] MEDS: hydrALAZINE HCL 50 MG TABLET PO SCH ×2 (09:00→12:29)
--- NOTE | 2020-08-15 09:00 | NUR ---
MS/RN NOTES PATIENT 2L OXYGEN VIA NASAL CANNULA WAS TITRATED TO ROOM AIR SATURATION 92%-95%. WILL CONTINUE TO MONITOR.
--- NOTE | 2020-08-15 09:01 | NUR ---
MS/RN NOTES PATIENT IS ON DIALYSIS AT THIS TIME. BLOOD PRESSURE MEDICATIONS WAS WITH HELD.
[2020-08-15] MEDS ORDERED: CARV6.252 PO (09:07)
[2020-08-15] MEDS ORDERED: CLONIDINE HCL 0.1 MG TABLET PO PRN (09:30)
[2020-08-15] MEDS: hydrALAZINE HCL IV 20 MG VIAL IV PRN (11:01)
[2020-08-15 12:30] VITALS: BP 182/87
[2020-08-15 13:34] LABS: BAND % (MANUAL) 1 % (0.0-5.0); LYMPHOCYTES % (MANUAL) 4 % (16-48); METAMYELOCYTES % 1 % (0-0); MONOCYTES % (MANUAL) 8 % (0-11.0); MYELOCYTES % 2 % (0-0); NEUTROPHILS % (MANUAL) 84 (42-76)
--- NOTE | 2020-08-15 15:11 | NUR ---
MS/RN NOTES PATIENT IS ALERT AND ORIENTED X4. PATIENT IN ROOM AIR SATURATION 93%. PATIENT IN NO APPARENT RESPIRATORY DISTRESS NOTED. NO COMPLAINED OF PAIN. SEEN AND EXAMINED BY MD WITH ORDERS MADE AND CARRIED OUT. ALL DUE MEDICATIONS WAS GIVEN. PATIENT WAS GIVEN EDUCATIONAL MATERIALS AND PATIENT VERBALIZED UNDERSTANDING. PATIENT LEFT IN MEDICALLY STABLE CONDITION VIA PRIVATE CAR ALONE. VITAL SIGN BP 140/89 P 86 TEMP 97.8 RR 18.
[2020-08-15] MEDS ORDERED: INSULIN GLARGINE, 100 UNIT/ML CARTRIDGE SQ SCH (22:00)
== END 2020-08-15 15:49 | disposition home or self-care (01) | DRG 291 ==
LOC: ER 18:39 → TRANSITION 21:46 → ICU 08-10 10:39 → TELE 08-11 18:17 → MED 08-13 08:42
PROVIDERS: ADMIT Nurse Practitioner Acute Care; ATTEND Internal Medicine
PROC: 06HY33Z Insertion of Infusion Device into Lower Vein, Percutaneous Approach (ICD-10-PCS; principal; 2020-08-10)
PROC: 5A1D70Z Performance of Urinary Filtration, Intermittent, Less than 6 Hours Per Day (ICD-10-PCS; 2020-08-10)
DX: I13.0 Hypertensive heart and chronic kidney disease with heart failure and stage 1 through stage 4 chronic kidney disease, or unspecified chronic kidney disease (principal); G92 Toxic encephalopathy; J96.01 Acute respiratory failure with hypoxia; N17.0 Acute kidney failure with tubular necrosis; K72.00 Acute and subacute hepatic failure without coma; I50.41 Acute combined systolic (congestive) and diastolic (congestive) heart failure; J45.901 Unspecified asthma with (acute) exacerbation; I16.1 Hypertensive emergency; Z68.42 Body mass index [BMI] 45.0-49.9, adult; N18.9 Chronic kidney disease, unspecified; E87.5 Hyperkalemia; I25.10 Atherosclerotic heart disease of native coronary artery without angina pectoris; G47.33 Obstructive sleep apnea (adult) (pediatric); E78.5 Hyperlipidemia, unspecified; E66.9 Obesity, unspecified; E11.22 Type 2 diabetes mellitus with diabetic chronic kidney disease; E66.01 Morbid (severe) obesity due to excess calories; G89.29 Other chronic pain; K44.9 Diaphragmatic hernia without obstruction or gangrene; Z88.8 Allergy status to other drugs, medicaments and biological substances; Z79.4 Long term (current) use of insulin; Z79.82 Long term (current) use of aspirin; Z79.899 Other long term (current) drug therapy; F41.9 Anxiety disorder, unspecified; Z87.891 Personal history of nicotine dependence; D72.829 Elevated white blood cell count, unspecified
CPT/HCPCS: 36415; 36600; 71045-TC; 76700-TC; 80048-TC; 80053-TC; 80061-TC; 80076-TC; 82550-TC; 82553; 82803-TC; 82945-TC; 82962-TC; 83605-TC; 83735-TC; 83880; 83970; 84100-TC; 84155; 84165; 84484-TC; 85025-TC; 85378-TC; 85652-TC; 85730-TC; 86225; 86235; 86704; 86705; 86706; 86803; 87040-TC; 87081-TC; 87340; 90935-TC; 93970-TC; 94660; 94799-TC; 97110-TC; 97116-TC; 97530-TC; A4349; C9803; G0378; J0360; J0456; J0696; J1170; J1630; J1644; J1815; J1940; J2060; J2405; J2930; J3490; J7042; J7050; J7060

== ENCOUNTER 2020-08-21 08:43 | Emergency (ER) | payer OTHER ==
[~2020-08-21] VITALS: Ht 172.7 cm; Wt 152.9 kg
[~2020-08-21 08:43] MED LIST changes: -OXYC5CAP18; +OXYC5CAP18 PO; -TRAZ-252; +TRAZ-252 PO
[2020-08-21] MEDS ORDERED: FUROSEMIDE 40 MG/4 ML VIAL ONE (09:15)
[2020-08-21] MEDS ORDERED: FUROSEMIDE 40 MG/4 ML VIAL IV ONE (09:30)
[2020-08-21 09:31] LABS: BASOPHILS # (AUTO) 0.2 /CMM (0.0-0.2); BASOPHILS % (AUTO) 2.5 % (0.0-2.0); EOSINOPHILS % (AUTO) 2.9 % (0.0-6.0); HEMATOCRIT 33 % (39-51); HEMOGLOBIN 10.6 g/dL (13.5-17.5); LYMPHOCYTES # (AUTO) 1.7 /CMM (0.8-4.8); LYMPHOCYTES % (AUTO) 18.6 % (20.0-44.0); MEAN CORPUSCULAR HGB CONC 32 g/dl (31.0-36.0); MEAN CORPUSCULAR VOLUME 94 fL (80-96); MONOCYTES # (AUTO) 0.4 /CMM (0.1-1.30); MONOCYTES % (AUTO) 3.8 % (2.0-12.0); NEUTROPHILS # (AUTO) 6.8 /CMM (1.8-8.9); NEUTROPHILS % (AUTO) 72.2 % (43.0-81.0); PLATELET COUNT (AUTO) 188 /CMM (150-450); RED BLOOD CELL COUNT(AUTO) 3.55 MIL/uL (4.5-6.0); WHITE BLOOD COUNT (AUTO) 9.4 K/uL (4.3-11.0)
--- NOTE | 2020-08-21 09:34 | NUR ---
Patientawake alert non distress hooked in the monitor ,blood draw ,xray call light with in raech side rails up x 2 for safety continue to monitor .
[2020-08-21 10:00] LABS: ALBUMIN 2.6 g/dL (3.4-5.0); BILIRUBIN,DIRECT 0.1 mg/dL (0.0-0.2); BILIRUBIN,TOTAL 0.3 mg/dL (0.2-1.0); CALCIUM, SERUM 8.2 mg/dL (8.5-10.1); POTASSIUM 5.1 mmol/L (3.5-5.1); TOTAL PROTEIN, SERUM 6.8 g/dL (6.4-8.2)
[2020-08-21 10:04] VITALS: BP 143/79
[2020-08-21] MEDS ORDERED: DOCU-141 PO (10:12)
[2020-08-21] MEDS ORDERED: ASPI-1169 PO (10:12)
[2020-08-21] MEDS ORDERED: NITR0.4T48 SL (10:12)
[2020-08-21] MEDS ORDERED: BACL10TA PO (10:13)
[2020-08-21] MEDS ORDERED: MONT10TA22 PO (10:13)
[2020-08-21] MEDS ORDERED: DILT180C93 PO (10:13)
[2020-08-21] MEDS ORDERED: LORA-259 PO (10:13)
[2020-08-21] MEDS ORDERED: LIRA0.6P SQ (10:15)
[2020-08-21] MEDS ORDERED: INSU100V7 SQ ×2 (10:15)
--- NOTE | 2020-08-21 10:18 | NUR ---
Chavo med rec Nurse @ bedside .
--- NOTE | 2020-08-21 10:42 | NUR ---
Noted patient able to urinated noted sob standing side of bed urine out 600 yellow urine .
--- NOTE | 2020-08-21 10:53 | NUR ---
Bs recheck 378 MD aware no order @ this time .
--- NOTE | 2020-08-21 12:07 | NUR ---
SPOKE TO CHUCHO FROM [facility] TRANSFER INFO: PATIENT ACCEPTED TO [facility] IN [facility]. ACCEPTING IS DR. HANCOCK. NUMBER FOR REPORT [phone]. PATIENT WILL BE GOING TO THE ER. NEEDS COPIES OF CHART, AND CD.
--- NOTE | 2020-08-21 12:11 | NUR ---
CALLED [facility] FOR TRANSPORT TO [facility] IN [facility]. ETA 45-60 MINUTES.
--- NOTE | 2020-08-21 12:35 | NUR ---
Report given to [facility] emergency room spoke to Sandra CHAUDHARYfoam charger no question asked this time given phone call back number .
--- NOTE | 2020-08-21 12:54 | NUR ---
food tray given DM diet .
--- NOTE | 2020-08-21 13:18 | NUR ---
Unit [facility] 30 transfer to [place] with belongings with cane ..
== END 2020-08-21 13:20 | disposition short-term general hospital (02) ==
LOC: ER 08:48
DX: I11.0 Hypertensive heart disease with heart failure (principal); I50.9 Heart failure, unspecified; Z87.891 Personal history of nicotine dependence; J45.909 Unspecified asthma, uncomplicated; G89.29 Other chronic pain; M54.9 Dorsalgia, unspecified; E11.9 Type 2 diabetes mellitus without complications; Z79.4 Long term (current) use of insulin; G47.33 Obstructive sleep apnea (adult) (pediatric); K44.9 Diaphragmatic hernia without obstruction or gangrene; Z79.82 Long term (current) use of aspirin; Z20.822 Contact with and (suspected) exposure to COVID-19
CPT/HCPCS: 36415; 71045; 80048; 80076; 82962; 83880; 84484; 85025; 85730; 87426; 93005; 96374; 99285; J1940; C9803

== ENCOUNTER 2021-04-19 19:54 | Inpatient (IN) | payer OTHER ==
[~2021-04-19] VITALS: Ht 172.7 cm; Wt 144.2 kg
[~2021-04-19 19:54] MED LIST changes: -*INS REG3; +BACL10TA PO; -CARV6.25 PO; +DILT180C93 PO; +DOCU-141 PO; -DOCU-270 PO; -Hydralazine Hcl PO; -INSU100V28 IJ; +INSU100V7 SQ; +LIRA0.6P SQ; -LISI20TA; +LORA-259 PO; -MELO-105; -METO200T49 PO; +MONT10TA22 PO; +NITR0.4T48 SL; -Nitroglycerin SL; -OXYC10TA59; -PANT40TA2 PO; -SIMV20TA2 PO
[2021-04-19] MEDS ORDERED: IPRATROPIUM NEB FS 0.5 MG/2.5 ML AMPUL.NEB ONE (20:16)
[2021-04-19] MEDS ORDERED: ALBUTEROL FS 2.5 MG/3 ML VIAL.NEB ONE (20:16)
[2021-04-19 20:28] LABS: BASOPHILS # (AUTO) 0.1 K/uL (0.0-0.2); BASOPHILS % (AUTO) 0.6 % (0.0-2.0); EOSINOPHILS % (AUTO) 0.9 % (0.0-6.0); HEMATOCRIT 29 % (39-51); HEMOGLOBIN 9.1 g/dL (13.5-17.5); LYMPHOCYTES # (AUTO) 1.1 K/uL (0.8-4.8); LYMPHOCYTES % (AUTO) 8.9 % (20.0-44.0); MEAN CORPUSCULAR HGB CONC 31 g/dl (31.0-36.0); MEAN CORPUSCULAR VOLUME 88 fL (80-96); MONOCYTES # (AUTO) 0.8 K/uL (0.1-1.30); MONOCYTES % (AUTO) 6.7 % (2.0-12.0); NEUTROPHILS # (AUTO) 10.5 K/uL (1.8-8.9); NEUTROPHILS % (AUTO) 82.9 % (43.0-81.0); PLATELET COUNT (AUTO) 341 K/uL (150-450); WHITE BLOOD COUNT (AUTO) 12.7 K/uL (4.3-11.0)
[2021-04-19] MEDS ORDERED: ALBUTEROL FS 2.5 MG/3 ML VIAL.NEB NEB ONE (20:30)
[2021-04-19] MEDS ORDERED: IPRATROPIUM NEB FS 0.5 MG/2.5 ML AMPUL.NEB NEB ONE (20:30)
[2021-04-19] MEDS ORDERED: HYDROCODONE/APAP 5/325MG TABLET ONE (20:33)
[2021-04-19 20:42] LABS: CALCIUM, SERUM 8.8 mg/dL (8.5-10.1); CARBON DIOXIDE 25 mmol/L (21-32); CHLORIDE 102 mmol/L (98-107); CREATININE 3.9 mg/dL (0.6-1.3); GLUCOSE 126 mg/dL (74-106); POTASSIUM 4.4 mmol/L (3.5-5.1); SODIUM SERUM 141 mmol/L (136-145); UREA NITROGEN, BLOOD 67 mg/dL (7-18)
[2021-04-19] MEDS ORDERED: HYDROCODONE/APAP 5/325MG TABLET PO ONE (21:00)
[2021-04-19 21:06] LABS: ALANINE AMINOTRANSFERASE 29 U/L (12-78); ALBUMIN 3.2 g/dL (3.4-5.0); ALKALINE PHOSPHATASE 125 U/L (46-116); ASPARTATE AMINOTRANSFERASE 29 U/L (15-37); BILIRUBIN,DIRECT 0.1 mg/dL (0.0-0.2); BILIRUBIN,TOTAL 0.3 mg/dL (0.2-1.0); TOTAL PROTEIN, SERUM 8.5 g/dL (6.4-8.2)
[2021-04-19] MEDS ORDERED: CEFEPIME 1 GM in IV D5W 50 ML IV ONE (21:30)
[2021-04-19] MEDS ORDERED: VANCOMYCIN 1 GM in IV D5W 250 ML IV ONE (21:30)
[2021-04-19] MEDS ORDERED: FUROSEMIDE 40 MG/4 ML VIAL IV ONE (21:30)
[2021-04-19] MEDS ORDERED: CEFEPIME 1 GM VIAL ONE (21:33)
[2021-04-19] MEDS ORDERED: VANCOMYCIN 1 GM VIAL ONE (21:33)
[2021-04-19] MEDS ORDERED: FUROSEMIDE 40 MG/4 ML VIAL ONE (21:33)
[2021-04-19] MEDS ORDERED: HYDROMORPHONE INJ 2 MG/ML DISP.SYRIN ONE (21:34)
[2021-04-19] MEDS ORDERED: HYDROMORPHONE HCL 2 MG TABLET ONE (21:47)
[2021-04-19] MEDS ORDERED: HYDROMORPHONE INJ 2 MG/ML DISP.SYRIN IV ONE (22:00)
[2021-04-19] MEDS ORDERED: HYDROMORPHONE HCL 2 MG TABLET PO ONE (22:30)
[2021-04-19 23:20] VITALS: BP 155/79
[2021-04-19] MEDS ORDERED: NITROGLYCERIN 0.4 MG/TAB BOTTLE SL PRN (23:30)
[2021-04-19] MEDS ORDERED: DEXTROSE 50%-WATER 50 ML DISP.SYRIN IV PRN (23:30)
[2021-04-19] MEDS ORDERED: BUMETANIDE INJ 4 MG in IV D5W 34 ML IV ONE (23:30)
[2021-04-19] MEDS ORDERED: BUMETANIDE INJ 2 MG in IV NS 0.9% 32 ML IV ONE (23:30)
[2021-04-20] MEDS ORDERED: BUMETANIDE INJ 0.25 MG/ML VIAL ONE (00:02)
[2021-04-20] MEDS ORDERED: CEFTRIAXONE 1 G VIAL ONE (00:21)
[2021-04-20] MEDS: CEFTRIAXONE 1 G in IV D5W 50 ML IV SCH ×2 (00:27→21:02)
[2021-04-20] MEDS ORDERED: methylPREDNISolone SOD SUCC 40 MG/ML VIAL IV SCH (01:00)
[2021-04-20] MEDS: TRAZODONE 50 MG TABLET PO SCH ×2 (01:23→21:03)
[2021-04-20 04:00] VITALS: BP 144/65
[2021-04-20 05:26] LABS: BILIRUBIN,URINE NEGATIVE (NEGATIVE); COLOR,URINE YELLOW (YELLOW); LEUKOCYTE ESTERASE ,URINE NEGATIVE (NEGATIVE); NITRITE, URINE NEGATIVE (NEGATIVE); PH,URINE 5.5 (5.0-8.0); PROTEIN,URINE 100 mg/dl (NEGATIVE); UGLUCOSE NEGATIVE (NEGATIVE); UROBILINOGEN,URINE 0.2 EU/dL (0.2)
[2021-04-20 05:37] LABS: BACTERIA,URINE Moderate /HPF (None Seen); COARSE GRANULAR CASTS,URINE Few /LPF (None Seen); SQUAMOUS EPITHELIAL CELL,UR Many /HPF (None Seen)
[2021-04-20 05:38] LABS: HYALINE CASTS, URINE Few /LPF (None Seen)
[2021-04-20 06:17] LABS: BASOPHILS % (AUTO) 0.2 % (0.0-2.0); EOSINOPHILS % (AUTO) 0.1 % (0.0-6.0); HEMATOCRIT 27 % (39-51); HEMOGLOBIN 8.5 g/dL (13.5-17.5); LYMPHOCYTES # (AUTO) 0.5 K/uL (0.8-4.8); LYMPHOCYTES % (AUTO) 4.2 % (20.0-44.0); MEAN CORPUSCULAR HGB CONC 32 g/dl (31.0-36.0); MEAN CORPUSCULAR VOLUME 87 fL (80-96); MONOCYTES # (AUTO) 0.4 K/uL (0.1-1.30); MONOCYTES % (AUTO) 3.5 % (2.0-12.0); NEUTROPHILS # (AUTO) 10.1 K/uL (1.8-8.9); PLATELET COUNT (AUTO) 304 K/uL (150-450); RED BLOOD CELL COUNT(AUTO) 3.09 MIL/uL (4.5-6.0)
[2021-04-20] MEDS: HYDROMORPHONE HCL 2 MG TABLET PO PRN ×2 (06:22→21:37)
[2021-04-20 07:05] LABS: BILIRUBIN,TOTAL 0.3 mg/dL (0.2-1.0); CALCIUM, SERUM 8.7 mg/dL (8.5-10.1); PHOSPHORUS 4.7 mg/dL (2.5-4.9); POTASSIUM 4.8 mmol/L (3.5-5.1)
[2021-04-20 07:12] LABS: THYROID STIMULATING HORMONE 0.411 uIU/mL (0.358-3.74)
[2021-04-20] MEDS: BLOOD SUGAR DIAGNOSTIC 1 EACH STRIP VI SCH ×4 (07:50→21:35)
[2021-04-20] MEDS: INSULIN REGULAR, HUMAN 100 UNIT/ML 3 ML VIAL SQ PRN ×3 (07:55→17:43)
[2021-04-20] MEDS ORDERED: Medication Not On Formulary EA (Liraglutide (Victoza) 1.8 MG) SQ SCH (09:00)
[2021-04-20] MEDS ORDERED: ENOXAPARIN SODIUM 100 MG/ML DISP.SYRIN SQ ONE (09:00)
[2021-04-20] MEDS: ASPIRIN 81 MG TAB.CHEW PO SCH (09:05)
[2021-04-20] MEDS: DILTIAZEM HCL CD 180 MG PO SCH (09:05)
[2021-04-20] MEDS: MONTELUKAST SODIUM (10MG) 10 MG TABLET PO SCH (09:05)
[2021-04-20] MEDS: methylPREDNISolone SOD SUCC 40 MG/ML VIAL IV SCH (09:07)
[2021-04-20] MEDS: INSULIN GLARGINE, 100 UNIT/ML CARTRIDGE SQ SCH ×2 (09:08→21:35)
[2021-04-20] MEDS: HEPARIN SODIUM, PORCINE 5000 UNITS/1 ML VIAL SQ SCH (09:09)
[2021-04-20] MEDS: METOLAZONE 2.5 MG TABLET PO SCH ×2 (12:00→16:17)
[2021-04-20] MEDS ORDERED: LORAZEPAM INJ 2 MG/ML VIAL IV ONE (12:30)
[2021-04-20] MEDS: BUMETANIDE INJ 0.25 MG/ML VIAL IV SCH (16:17)
[2021-04-20 20:00] VITALS: BP 134/89
[2021-04-20] MEDS: *INSULIN REGULAR(HUMULIN R)HUM 100 UNIT/ML VIAL SQ PRN (21:34)
[2021-04-20] MEDS ORDERED: TRAZODONE 50 MG TABLET PO SCH (22:00)
[2021-04-20] MEDS: IPRATROPIUM NEB FS 0.5 MG/2.5 ML AMPUL.NEB INH PRN (23:17)
[2021-04-20] MEDS: ALBUTEROL FS 2.5 MG/0.5 ML VIAL.NEB NEB PRN (23:17)
[2021-04-21] VITALS (7 sets, daily range): BP systolic 145–184; BP diastolic 74–95
[2021-04-21 06:50] LABS: BASOPHILS # (AUTO) 0.1 K/uL (0.0-0.2); BASOPHILS % (AUTO) 1.2 % (0.0-2.0); EOSINOPHILS % (AUTO) 0.5 % (0.0-6.0); HEMATOCRIT 27 % (39-51); HEMOGLOBIN 8.4 g/dL (13.5-17.5); LYMPHOCYTES # (AUTO) 1.2 K/uL (0.8-4.8); LYMPHOCYTES % (AUTO) 10.7 % (20.0-44.0); MEAN CORPUSCULAR HGB CONC 32 g/dl (31.0-36.0); MEAN CORPUSCULAR VOLUME 87 fL (80-96); MONOCYTES # (AUTO) 0.9 K/uL (0.1-1.30); MONOCYTES % (AUTO) 8.3 % (2.0-12.0); NEUTROPHILS # (AUTO) 9.1 K/uL (1.8-8.9); NEUTROPHILS % (AUTO) 79.3 % (43.0-81.0); PLATELET COUNT (AUTO) 323 K/uL (150-450); RED BLOOD CELL COUNT(AUTO) 3.08 MIL/uL (4.5-6.0); WHITE BLOOD COUNT (AUTO) 11.5 K/uL (4.3-11.0)
[2021-04-21] MEDS: INSULIN REGULAR, HUMAN 100 UNIT/ML 3 ML VIAL SQ PRN ×3 (07:35→16:46)
[2021-04-21] MEDS: BLOOD SUGAR DIAGNOSTIC 1 EACH STRIP VI SCH ×4 (07:35→21:37)
[2021-04-21 07:44] LABS: BILIRUBIN,TOTAL 0.2 mg/dL (0.2-1.0); CALCIUM, SERUM 8.2 mg/dL (8.5-10.1); CREATININE 3.8 mg/dL (0.6-1.3); POTASSIUM 4.5 mmol/L (3.5-5.1); TOTAL PROTEIN, SERUM 7.9 g/dL (6.4-8.2)
[2021-04-21] MEDS: MONTELUKAST SODIUM (10MG) 10 MG TABLET PO SCH (08:25)
[2021-04-21] MEDS: methylPREDNISolone SOD SUCC 40 MG/ML VIAL IV SCH (08:26)
[2021-04-21] MEDS: METOLAZONE 2.5 MG TABLET PO SCH ×2 (08:26→16:02)
[2021-04-21] MEDS: BUMETANIDE INJ 0.25 MG/ML VIAL IV SCH ×2 (08:26→16:02)
[2021-04-21] MEDS: HEPARIN SODIUM, PORCINE 5000 UNITS/1 ML VIAL SQ SCH (08:27)
[2021-04-21] MEDS: DILTIAZEM HCL CD 180 MG PO SCH (08:28)
[2021-04-21] MEDS: ISOSORBIDE DINITRATE (20MG) 20 MG TABLET PO SCH ×2 (08:32→16:02)
[2021-04-21] MEDS: ASPIRIN 81 MG TAB.CHEW PO SCH (08:32)
[2021-04-21] MEDS: hydrALAZINE HCL 50 MG TABLET PO SCH ×3 (08:32→16:03)
[2021-04-21] MEDS: INSULIN GLARGINE, 100 UNIT/ML CARTRIDGE SQ SCH ×2 (08:35→21:37)
[2021-04-21] MEDS: AZITHROMYCIN 250 MG TABLET PO SCH (11:08)
[2021-04-21] MEDS: HYDROMORPHONE HCL 2 MG TABLET PO PRN ×2 (12:01→20:01)
[2021-04-21] MEDS: SOD FERRIC GLUC 125 MG in IV NS 0.9% 100 ML IV SCH (14:21)
[2021-04-21] MEDS: DOCUSATE SODIUM 100 MG CAPSULE PO PRN (14:25)
[2021-04-21] MEDS: IPRATROPIUM NEB FS 0.5 MG/2.5 ML AMPUL.NEB INH PRN ×2 (14:38→20:14)
[2021-04-21] MEDS: ALBUTEROL FS 2.5 MG/0.5 ML VIAL.NEB NEB PRN ×2 (14:38→20:14)
[2021-04-21] MEDS: CEFTRIAXONE 1 G in IV D5W 50 ML IV SCH (20:01)
[2021-04-21] MEDS: TRAZODONE 50 MG TABLET PO SCH (21:26)
[2021-04-21] MEDS: *INSULIN REGULAR(HUMULIN R)HUM 100 UNIT/ML VIAL SQ PRN (21:36)
[2021-04-22] VITALS: BP 153/71
[2021-04-22 04:00] VITALS: BP 158/68
[2021-04-22] MEDS: HYDROMORPHONE HCL 2 MG TABLET PO PRN ×3 (05:39→21:56)
[2021-04-22 06:27] LABS: LYMPHOCYTES # (AUTO) 1.3 K/uL (0.8-4.8); MONOCYTES # (AUTO) 0.8 K/uL (0.1-1.30); NEUTROPHILS # (AUTO) 8.3 K/uL (1.8-8.9); WHITE BLOOD COUNT (AUTO) 10.6 K/uL (4.3-11.0)
[2021-04-22 06:59] LABS: BASOPHILS % (AUTO) 0.4 % (0.0-2.0); EOSINOPHILS % (AUTO) 0.4 % (0.0-6.0); HEMATOCRIT 26 % (39-51); HEMOGLOBIN 8.1 g/dL (13.5-17.5); LYMPHOCYTES % (AUTO) 12.7 % (20.0-44.0); MEAN CORPUSCULAR HGB CONC 32 g/dl (31.0-36.0); MEAN CORPUSCULAR VOLUME 86 fL (80-96); MONOCYTES % (AUTO) 7.9 % (2.0-12.0); NEUTROPHILS % (AUTO) 78.6 % (43.0-81.0); PLATELET COUNT (AUTO) 306 K/uL (150-450); RED BLOOD CELL COUNT(AUTO) 2.96 MIL/uL (4.5-6.0)
[2021-04-22 07:00] LABS: ALBUMIN 2.8 g/dL (3.4-5.0); BILIRUBIN,TOTAL 0.2 mg/dL (0.2-1.0); CALCIUM, SERUM 8.1 mg/dL (8.5-10.1); CREATININE 3.5 mg/dL (0.6-1.3); POTASSIUM 4.5 mmol/L (3.5-5.1); TOTAL PROTEIN, SERUM 7.6 g/dL (6.4-8.2)
[2021-04-22] MEDS: BLOOD SUGAR DIAGNOSTIC 1 EACH STRIP VI SCH ×4 (07:34→22:09)
[2021-04-22] MEDS: INSULIN REGULAR, HUMAN 100 UNIT/ML 3 ML VIAL SQ PRN ×3 (07:35→16:34)
[2021-04-22 08:00] VITALS: BP 139/75
[2021-04-22] MEDS: HEPARIN SODIUM, PORCINE 5000 UNITS/1 ML VIAL SQ SCH (08:08)
[2021-04-22] MEDS: MONTELUKAST SODIUM (10MG) 10 MG TABLET PO SCH (08:11)
[2021-04-22] MEDS: ASPIRIN 81 MG TAB.CHEW PO SCH (08:11)
[2021-04-22] MEDS: METOLAZONE 2.5 MG TABLET PO SCH ×2 (08:11→16:24)
[2021-04-22] MEDS: ISOSORBIDE DINITRATE (20MG) 20 MG TABLET PO SCH ×2 (08:12→16:24)
[2021-04-22] MEDS: BUMETANIDE INJ 0.25 MG/ML VIAL IV SCH ×2 (08:12→16:24)
[2021-04-22] MEDS: DILTIAZEM HCL CD 180 MG PO SCH (08:12)
[2021-04-22] MEDS: hydrALAZINE HCL 50 MG TABLET PO SCH ×3 (08:13→16:24)
[2021-04-22] MEDS: methylPREDNISolone SOD SUCC 40 MG/ML VIAL IV SCH (08:13)
[2021-04-22] MEDS: INSULIN GLARGINE, 100 UNIT/ML CARTRIDGE SQ SCH ×2 (08:44→22:08)
[2021-04-22] MEDS: AZITHROMYCIN 250 MG TABLET PO SCH (10:21)
[2021-04-22 11:39] LABS: LYMPHOCYTES % (MANUAL) 9 % (16-48); METAMYELOCYTES % 1 % (0-0); MONOCYTES % (MANUAL) 4 % (0-11.0); NEUTROPHILS % (MANUAL) 86 (42-76)
[2021-04-22 12:02] VITALS: BP 145/74
[2021-04-22] MEDS: SOD FERRIC GLUC 125 MG in IV NS 0.9% 100 ML IV SCH (14:42)
[2021-04-22 16:16] VITALS: BP 164/71
[2021-04-22] MEDS: DOCUSATE SODIUM 100 MG CAPSULE PO PRN (16:35)
[2021-04-22] MEDS: LORAZEPAM 1 MG TABLET PO PRN ×2 (16:35→22:10)
[2021-04-22] MEDS: LIRAGLUTIDE SQ SCH (19:00)
[2021-04-22 20:00] VITALS: BP 173/74
[2021-04-22] MEDS: TRAZODONE 50 MG TABLET PO SCH (21:51)
[2021-04-22] MEDS: CEFTRIAXONE 1 G in IV D5W 50 ML IV SCH (21:51)
[2021-04-22] MEDS: *INSULIN REGULAR(HUMULIN R)HUM 100 UNIT/ML VIAL SQ PRN (22:04)
[2021-04-23] VITALS (8 sets, daily range): BP systolic 135–178; BP diastolic 60–85
[2021-04-23 06:18] LABS: BASOPHILS % (AUTO) 0.2 % (0.0-2.0); EOSINOPHILS % (AUTO) 0.3 % (0.0-6.0); HEMATOCRIT 26 % (39-51); HEMOGLOBIN 8.2 g/dL (13.5-17.5); LYMPHOCYTES # (AUTO) 1.3 K/uL (0.8-4.8); LYMPHOCYTES % (AUTO) 12.2 % (20.0-44.0); MEAN CORPUSCULAR HGB CONC 32 g/dl (31.0-36.0); MEAN CORPUSCULAR VOLUME 87 fL (80-96); MONOCYTES # (AUTO) 0.9 K/uL (0.1-1.30); MONOCYTES % (AUTO) 8.5 % (2.0-12.0); NEUTROPHILS # (AUTO) 8.6 K/uL (1.8-8.9); NEUTROPHILS % (AUTO) 78.8 % (43.0-81.0); PLATELET COUNT (AUTO) 332 K/uL (150-450); RED BLOOD CELL COUNT(AUTO) 2.97 MIL/uL (4.5-6.0); WHITE BLOOD COUNT (AUTO) 10.9 K/uL (4.3-11.0)
[2021-04-23 07:11] LABS: ALBUMIN 2.7 g/dL (3.4-5.0); BILIRUBIN,TOTAL 0.1 mg/dL (0.2-1.0); CALCIUM, SERUM 8.5 mg/dL (8.5-10.1); CREATININE 3.1 mg/dL (0.6-1.3); POTASSIUM 4.3 mmol/L (3.5-5.1); TOTAL PROTEIN, SERUM 7.3 g/dL (6.4-8.2)
[2021-04-23] MEDS: BUMETANIDE INJ 0.25 MG/ML VIAL IV SCH ×2 (08:51→16:02)
[2021-04-23] MEDS: methylPREDNISolone SOD SUCC 40 MG/ML VIAL IV SCH (08:52)
[2021-04-23] MEDS: hydrALAZINE HCL 50 MG TABLET PO SCH ×3 (08:53→16:03)
[2021-04-23] MEDS: ASPIRIN 81 MG TAB.CHEW PO SCH (08:54)
[2021-04-23] MEDS: DILTIAZEM HCL CD 180 MG PO SCH (08:55)
[2021-04-23] MEDS: ISOSORBIDE DINITRATE (20MG) 20 MG TABLET PO SCH ×2 (08:55→16:04)
[2021-04-23] MEDS: MONTELUKAST SODIUM (10MG) 10 MG TABLET PO SCH (08:56)
[2021-04-23] MEDS: HYDROMORPHONE HCL 2 MG TABLET PO PRN ×3 (08:56→21:14)
[2021-04-23] MEDS: METOLAZONE 2.5 MG TABLET PO SCH ×2 (08:56→16:02)
[2021-04-23] MEDS ORDERED: *INSULIN REGULAR(HUMULIN R)HUM 100 UNIT/ML VIAL SQ PRN (09:00)
[2021-04-23] MEDS: INSULIN GLARGINE, 100 UNIT/ML CARTRIDGE SQ SCH ×2 (09:08→21:05)
[2021-04-23] MEDS: HEPARIN SODIUM, PORCINE 5000 UNITS/1 ML VIAL SQ SCH (09:08)
[2021-04-23] MEDS: LIRAGLUTIDE SQ SCH (09:09)
[2021-04-23] MEDS: BLOOD SUGAR DIAGNOSTIC 1 EACH STRIP IN SCH ×3 (12:31→21:01)
[2021-04-23] MEDS: LORAZEPAM 1 MG TABLET PO PRN ×2 (12:32→23:20)
[2021-04-23] MEDS: AZITHROMYCIN 250 MG TABLET PO SCH (12:33)
[2021-04-23] MEDS: INSULIN REGULAR, HUMAN 100 UNIT/ML 3 ML VIAL SQ PRN ×2 (12:34→17:15)
[2021-04-23] MEDS ORDERED: BISACODYL (5 MG) 5 MG TABLET.DR PO PRN (13:00)
[2021-04-23] MEDS: BISACODYL (5 MG) 5 MG TABLET.DR PO PRN (14:14)
[2021-04-23] MEDS: SOD FERRIC GLUC 125 MG in IV NS 0.9% 100 ML IV SCH (14:14)
[2021-04-23] MEDS: IPRATROPIUM NEB FS 0.5 MG/2.5 ML AMPUL.NEB INH PRN (20:07)
[2021-04-23] MEDS: ALBUTEROL FS 2.5 MG/0.5 ML VIAL.NEB NEB PRN (20:07)
[2021-04-23] MEDS: CEFTRIAXONE 1 G in IV D5W 50 ML IV SCH (20:34)
[2021-04-23] MEDS: TRAZODONE 50 MG TABLET PO SCH (21:06)
[2021-04-24] MEDS: INSULIN REGULAR, HUMAN 100 UNIT/ML 3 ML VIAL SQ PRN (06:25)
[2021-04-24] MEDS: BLOOD SUGAR DIAGNOSTIC 1 EACH STRIP IN SCH (06:27)
[2021-04-24 06:57] LABS: BASOPHILS # (AUTO) 0.1 K/uL (0.0-0.2); BASOPHILS % (AUTO) 0.6 % (0.0-2.0); EOSINOPHILS % (AUTO) 0.8 % (0.0-6.0); HEMATOCRIT 29 % (39-51); LYMPHOCYTES # (AUTO) 1.7 K/uL (0.8-4.8); LYMPHOCYTES % (AUTO) 14.1 % (20.0-44.0); MEAN CORPUSCULAR HGB CONC 31 g/dl (31.0-36.0); MEAN CORPUSCULAR VOLUME 87 fL (80-96); MONOCYTES % (AUTO) 8.5 % (2.0-12.0); NEUTROPHILS # (AUTO) 9.1 K/uL (1.8-8.9); PLATELET COUNT (AUTO) 332 K/uL (150-450); RED BLOOD CELL COUNT(AUTO) 3.39 MIL/uL (4.5-6.0); WHITE BLOOD COUNT (AUTO) 11.9 K/uL (4.3-11.0)
[2021-04-24 07:46] LABS: ALBUMIN 2.6 g/dL (3.4-5.0); CALCIUM, SERUM 8.8 mg/dL (8.5-10.1); CREATININE 2.7 mg/dL (0.6-1.3); POTASSIUM 4.2 mmol/L (3.5-5.1); TOTAL PROTEIN, SERUM 7.1 g/dL (6.4-8.2)
[2021-04-24 08:00] VITALS: BP 179/83
[2021-04-24 08:13] LABS: BILIRUBIN,TOTAL 0.1 mg/dL (0.2-1.0)
[2021-04-24] MEDS: methylPREDNISolone SOD SUCC 40 MG/ML VIAL IV SCH (08:28)
[2021-04-24] MEDS: ASPIRIN 81 MG TAB.CHEW PO SCH (08:29)
[2021-04-24] MEDS: MONTELUKAST SODIUM (10MG) 10 MG TABLET PO SCH (08:29)
[2021-04-24] MEDS: METOLAZONE 2.5 MG TABLET PO SCH (08:30)
[2021-04-24] MEDS: ISOSORBIDE DINITRATE (20MG) 20 MG TABLET PO SCH (08:30)
[2021-04-24 08:31] VITALS: BP 179/93
[2021-04-24] MEDS: hydrALAZINE HCL 50 MG TABLET PO SCH (08:31)
[2021-04-24] MEDS: BUMETANIDE INJ 0.25 MG/ML VIAL IV SCH (08:31)
[2021-04-24] MEDS: DILTIAZEM HCL CD 180 MG PO SCH (08:31)
[2021-04-24] MEDS: HEPARIN SODIUM, PORCINE 5000 UNITS/1 ML VIAL SQ SCH (08:32)
[2021-04-24 08:40] LABS: EOSINOPHILS % (MANUAL) 1 % (0-4); LYMPHOCYTES % (MANUAL) 16 % (16-48); MONOCYTES % (MANUAL) 6 % (0-11.0); NEUTROPHILS % (MANUAL) 77 (42-76)
[2021-04-24] MEDS: INSULIN GLARGINE, 100 UNIT/ML CARTRIDGE SQ SCH (08:44)
[2021-04-24] MEDS: LIRAGLUTIDE SQ SCH (08:45)
[2021-04-24] MEDS: HYDROMORPHONE HCL 2 MG TABLET PO PRN (08:50)
[2021-04-24] MEDS: BISACODYL (5 MG) 5 MG TABLET.DR PO PRN (09:21)
[2021-04-24] MEDS ORDERED: ISOS20TA8 PO (10:28)
[2021-04-24] MEDS: AZITHROMYCIN 250 MG TABLET PO SCH (11:03)
[2021-04-24 12:17] LABS: ABG BASE EXCESS 4.4 mmol/L; ABG OXYGEN SATURATION 95.1 % (92.0-98.5); ABG PCO2 52.1 mmHg (35.0-45.0); ABG PH 7.384 (7.350-7.450); ABG PO2 75.8 mmHg (75.0-100.0); AaDO2 62.4 mmHg; COHb 1.4 % (0.5-1.5); MetHb 0.1 % (0.0-1.5); O2Hb 93.7 % (94.0-97.0); SITE, ABG Right Radial; VENT MODE, BG NC 28%
== END 2021-04-24 12:25 | disposition home or self-care (01) | DRG 177 ==
LOC: ER 20:00 → TELE1 21:46 → MEDSG1 04-23 13:48 → MED 04-23 16:18
PROVIDERS: ADMIT Registered Nurse; ATTEND Internal Medicine
DX: J15.6 Pneumonia due to other Gram-negative bacteria (principal); J96.21 Acute and chronic respiratory failure with hypoxia; N17.9 Acute kidney failure, unspecified; I13.0 Hypertensive heart and chronic kidney disease with heart failure and stage 1 through stage 4 chronic kidney disease, or unspecified chronic kidney disease; J45.901 Unspecified asthma with (acute) exacerbation; Z68.42 Body mass index [BMI] 45.0-49.9, adult; J44.0 Chronic obstructive pulmonary disease with (acute) lower respiratory infection; E87.2 Acidosis; N18.4 Chronic kidney disease, stage 4 (severe); E11.22 Type 2 diabetes mellitus with diabetic chronic kidney disease; E11.40 Type 2 diabetes mellitus with diabetic neuropathy, unspecified; E78.5 Hyperlipidemia, unspecified; I25.10 Atherosclerotic heart disease of native coronary artery without angina pectoris; D64.9 Anemia, unspecified; E11.65 Type 2 diabetes mellitus with hyperglycemia; E66.01 Morbid (severe) obesity due to excess calories; F41.9 Anxiety disorder, unspecified; G47.33 Obstructive sleep apnea (adult) (pediatric); G89.29 Other chronic pain; Z79.4 Long term (current) use of insulin; Z79.82 Long term (current) use of aspirin; Z87.891 Personal history of nicotine dependence; N18.9 Chronic kidney disease, unspecified; Z20.822 Contact with and (suspected) exposure to COVID-19; I50.9 Heart failure, unspecified
CPT/HCPCS: 36415; 36600; 71045-TC; 71250-TC; 76770-TC; 78582; 80048-TC; 80053-TC; 80061-TC; 80076-TC; 81001; 82668; 82803-TC; 82962-TC; 83540-TC; 83605-TC; 83735-TC; 83880; 83970; 84100-TC; 84443-TC; 84484-TC; 85025-TC; 85378-TC; 86704; 86705; 86706; 86803; 87040-TC; 87081-TC; 87086-TC; 87340; 93307-TC; 93970-TC; 94799-TC; 97116-TC; 97530-TC; A4217; A9540; A9567; C9803; G0378; J0692; J0696; J1170; J1644; J1650; J1815; J1940; J2060; J2916; J2920; J3370; J3490; J7030; J7050; J7060; U0003

== ENCOUNTER 2021-06-10 08:09 | Inpatient (IN) | payer OTHER ==
[~2021-06-10] VITALS: Ht 172.7 cm; Wt 139.3 kg
[~2021-06-10 08:09] MED LIST changes: +ISOS20TA8 PO
--- NOTE | 2021-06-10 08:21 | NUR ---
SALINE LOCK ESTABLISHED, BLOOD DRAWN AND SENT TO LAB
[2021-06-10 08:32] LABS: BASOPHILS # (AUTO) 0.1 K/uL (0.0-0.2); BASOPHILS % (AUTO) 1.1 % (0.0-2.0); EOSINOPHILS % (AUTO) 1.1 % (0.0-6.0); HEMATOCRIT 29 % (39-51); HEMOGLOBIN 8.8 g/dL (13.5-17.5); LYMPHOCYTES # (AUTO) 1.4 K/uL (0.8-4.8); LYMPHOCYTES % (AUTO) 11.5 % (20.0-44.0); MEAN CORPUSCULAR HGB CONC 31 g/dl (31.0-36.0); MEAN CORPUSCULAR VOLUME 85 fL (80-96); MONOCYTES # (AUTO) 0.8 K/uL (0.1-1.30); MONOCYTES % (AUTO) 6.6 % (2.0-12.0); NEUTROPHILS # (AUTO) 9.3 K/uL (1.8-8.9); NEUTROPHILS % (AUTO) 79.7 % (43.0-81.0); PLATELET COUNT (AUTO) 265 K/uL (150-450); RED BLOOD CELL COUNT(AUTO) 3.34 MIL/uL (4.5-6.0); WHITE BLOOD COUNT (AUTO) 11.7 K/uL (4.3-11.0)
--- NOTE | 2021-06-10 08:32 | NUR ---
COVID SWAB DONE AND SENT TO LAB
--- NOTE | 2021-06-10 08:35 | NUR ---
[facility] CONSULTANT AT BEDSIDE
--- NOTE | 2021-06-10 08:35 | NUR ---
MOVE SHEET SUBMITTED AND CALLED FOR [facility] B[facility].
[2021-06-10 08:41] LABS: CALCIUM, SERUM 9.1 mg/dL (8.5-10.1); CARBON DIOXIDE 27 mmol/L (21-32); CHLORIDE 101 mmol/L (98-107); CREATININE 4.9 mg/dL (0.6-1.3); GLUCOSE 188 mg/dL (74-106); POTASSIUM 4.5 mmol/L (3.5-5.1); SODIUM SERUM 139 mmol/L (136-145)
[2021-06-10 08:44] LABS: UREA NITROGEN, BLOOD 86 mg/dL (7-18)
[2021-06-10 08:53] LABS: ALANINE AMINOTRANSFERASE 34 U/L (12-78); ALKALINE PHOSPHATASE 135 U/L (46-116); ASPARTATE AMINOTRANSFERASE 19 U/L (15-37); BILIRUBIN,DIRECT 0.1 mg/dL (0.0-0.2); BILIRUBIN,TOTAL 0.4 mg/dL (0.2-1.0); TOTAL PROTEIN, SERUM 8.1 g/dL (6.4-8.2)
--- NOTE | 2021-06-10 09:46 | NUR ---
[facility] CALLED BUDGET COUNSELOR PAGED.
--- NOTE | 2021-06-10 10:09 | NUR ---
GOT BED 110
[2021-06-10] MEDS ORDERED: FUROSEMIDE 40 MG/4 ML VIAL IV ONE (10:30)
[2021-06-10] MEDS ORDERED: ONDANSETRON HCL/PF 4 MG/2 ML VIAL IVP PRN (11:00)
[2021-06-10] MEDS ORDERED: NITROGLYCERIN 0.4 MG/TAB BOTTLE SL PRN (11:00)
[2021-06-10] MEDS ORDERED: DOCUSATE SODIUM 100 MG CAPSULE PO PRN (11:00)
[2021-06-10] MEDS ORDERED: ACETAMINOPHEN 325 MG TABLET PO PRN (11:00)
[2021-06-10] MEDS ORDERED: Z GUARD REMEDY 2 OZ OINT TP PRN (11:00)
--- NOTE | 2021-06-10 11:05 | NUR ---
REPORT GIVEN TO JANIE CHAUDHARY FOR MELY
[2021-06-10] MEDS ORDERED: FUROSEMIDE 40 MG/4 ML VIAL ONE (11:08)
--- NOTE | 2021-06-10 11:19 | NUR ---
PT TRANSFERRED TO [facility] 110 VIA ACLS PROTOCOL. VSS. ALL BELONGINGS WITH PT.
[2021-06-10] MEDS ORDERED: oxyCODONE IR immediate release 5 MG PO SCH (13:00)
[2021-06-10] MEDS: HYDROMORPHONE HCL 2 MG TABLET PO SCH ×2 (14:13→18:08)
[2021-06-10] MEDS: BUMETANIDE INJ 0.25 MG/ML VIAL IV SCH ×2 (14:13→18:07)
[2021-06-10] MEDS ORDERED: FUROSEMIDE 40 MG/4 ML VIAL IV SCH (17:00)
[2021-06-10] MEDS ORDERED: ISOSORBIDE DINITRATE (20MG) 20 MG TABLET PO SCH (17:00)
[2021-06-10] MEDS ORDERED: METOLAZONE 2.5 MG TABLET PO SCH (17:00)
[2021-06-10 18:06] VITALS: BP 131/66
--- NOTE | 2021-06-10 18:23 | NUR ---
RN NOTES PT VOLUNTARILY DECIDED TO BE AMA AFTER SEEING PHYSICIAN.
[2021-06-10] MEDS ORDERED: BUDESONIDE RESPULE INH 0.25 MG/2 ML AMPUL.NEB NEB SCH (19:30)
[2021-06-10] MEDS ORDERED: INSULIN GLARGINE, 100 UNIT/ML CARTRIDGE SQ SCH (21:00)
[2021-06-10] MEDS ORDERED: TRAZODONE 50 MG TABLET PO SCH (22:00)
[2021-06-11] MEDS ORDERED: PANTOPRAZOLE 40 MG TABLET.DR PO SCH (07:30)
[2021-06-11] MEDS ORDERED: DILTIAZEM HCL CD 180 MG PO SCH (09:00)
[2021-06-11] MEDS ORDERED: Medication Not On Formulary EA (Liraglutide (Victoza) 1.8 MG) SQ SCH (09:00)
[2021-06-11] MEDS ORDERED: ASPIRIN 81 MG TAB.CHEW PO SCH (09:00)
[2021-06-11] MEDS ORDERED: MONTELUKAST SODIUM (10MG) 10 MG TABLET PO SCH (09:00)
[2021-06-11] MEDS ORDERED: INSULIN GLARGINE, 100 UNIT/ML CARTRIDGE SQ SCH (09:00)
== END 2021-06-10 20:19 | disposition left against medical advice (07) | DRG 291 ==
LOC: ER 08:10 → TELE-TD 10:23 → TELE1 11:29
PROVIDERS: ADMIT Registered Nurse; ATTEND Registered Nurse
DX: I13.2 Hypertensive heart and chronic kidney disease with heart failure and with stage 5 chronic kidney disease, or end stage renal disease (principal); J96.21 Acute and chronic respiratory failure with hypoxia; I50.33 Acute on chronic diastolic (congestive) heart failure; Z68.42 Body mass index [BMI] 45.0-49.9, adult; N18.4 Chronic kidney disease, stage 4 (severe); J90 Pleural effusion, not elsewhere classified; J98.11 Atelectasis; Z20.822 Contact with and (suspected) exposure to COVID-19; E11.22 Type 2 diabetes mellitus with diabetic chronic kidney disease; E78.5 Hyperlipidemia, unspecified; I25.10 Atherosclerotic heart disease of native coronary artery without angina pectoris; J45.909 Unspecified asthma, uncomplicated; G89.29 Other chronic pain; G47.33 Obstructive sleep apnea (adult) (pediatric); K44.9 Diaphragmatic hernia without obstruction or gangrene; Z79.899 Other long term (current) drug therapy; Z88.8 Allergy status to other drugs, medicaments and biological substances; Z79.4 Long term (current) use of insulin; Z79.82 Long term (current) use of aspirin; Z87.891 Personal history of nicotine dependence; D72.829 Elevated white blood cell count, unspecified; D63.1 Anemia in chronic kidney disease; E11.40 Type 2 diabetes mellitus with diabetic neuropathy, unspecified; E11.65 Type 2 diabetes mellitus with hyperglycemia; E66.01 Morbid (severe) obesity due to excess calories; I27.20 Pulmonary hypertension, unspecified; J44.9 Chronic obstructive pulmonary disease, unspecified
CPT/HCPCS: 36415; 71045-TC; 80048-TC; 80076-TC; 83880; 84484-TC; 85025-TC; 87081-TC; C9803; G0378; J1815; J1940; J3490